=== PATIENT | female | born 1955 | race Caucasian/White ===

== ENCOUNTER → 2021-05-25 11:02 | Outpatient (BNVA) | payer MEDICARE, SELFPAY | PROVIDERS: PCP Internal Medicine; Visit Provider Obstetrics & Gynecology ==

== ENCOUNTER 2021-08-29 08:22 | Outpatient (REF) | payer MEDICARE, SELFPAY ==
[2021-08-29 11:42] LABS: MANUAL DIFF FLAG NO
[2021-08-29 12:00] LABS: Basophils Percent Auto 0.6 % (0-2); Eosinophils Absolute Auto 0.1 X10*3/uL (0.0-0.4); Eosinophils Percent Auto 2.5 % (0-4); Hematocrit 41.6 % (37.0-47.0); Hemoglobin 13.6 g/dl (12.0-16.0); Imm Gran Abs Auto 0.01 X10*3/uL (0.00-0.03); Imm Gran Pct Auto 0.2 % (0.0-0.4); Lymphocytes Absolute Auto 2.1 X10*3/uL (1.2-4.9); Lymphocytes Percent Auto 43.9 % (20-40); Mean Corpuscular HGB Conc 32.7 g/dl (31.0-35.0); Mean Corpuscular Volume 91.8 fL (80.0-98.0); Mean Platelet Volume 11.8 fL (9.4-12.3); Monocytes Absolute Auto 0.3 X10*3/uL (0.1-1.2); Monocytes Percent Auto 7.2 % (2-11); Neutrophils Absolute Auto 2.2 x10*3/uL (2.0-8.3); Neutrophils Percent Auto 45.6 % (45-73); Platelet Count 197 X10*3/uL (160-400); Red Blood Count 4.53 X10*6/uL (4.20-5.50); Red Cell Distribution Width 12.8 % (11.0-16.0); White Blood Count 4.7 X10*3/uL (4.8-10.8)
[2021-08-29 12:35] LABS: Vitamin D 25-OH Total 52.4 ng/mL (>30)
[2021-08-29 12:50] LABS: Alanine Aminotransferase 17 U/L (0-31); Albumin Level 4.1 g/dL (3.5-5.0); Alkaline Phosphatase 64 U/L (39-117); Anion Gap 13 (12-20); Aspartate Amino Transferase 15 U/L (5-31); Bilirubin Total 0.5 mg/dL (0.0-1.0); Blood Urea Nitrogen 22 mg/dL (9-16); Calcium 9.5 mg/dL (8.4-10.2); Carbon Dioxide 22 mmol/L (22-29); Chloride 109 mmol/L (96-108); Cholesterol 190 mg/dL; Estimated Glomerular Filt Rate > 60; Glucose Fasting 96 mg/dL (60-99); HDL Cholesterol 48 mg/dL; LDL Cholesterol Calculated 120 mg/dl; Potassium 4.3 mmol/L (3.3-5.1); Sodium 140 mmol/L (135-145); Total Protein 6.8 g/dL (6.5-8.0); Triglycerides 111 mg/dL
== END 2021-08-29 08:23 | disposition home or self-care (01) ==
LOC: HO.HMGCLDS 08:22
PROVIDERS: PCP Internal Medicine; Visit Provider Internal Medicine
DX: I10 Essential (primary) hypertension (principal); E78.00 Pure hypercholesterolemia, unspecified; K21.9 Gastro-esophageal reflux disease without esophagitis; M81.0 Age-related osteoporosis without current pathological fracture
CPT/HCPCS: 36415; 80053; 80061; 82306; 85025

== ENCOUNTER 2022-06-26 09:17 | Outpatient (REF) | payer MEDICARE, SELFPAY ==
[2022-06-29 22:41] LABS: HPV mRNA E6/E7 rflx Not Detected (Not Detected)
== END 2022-06-26 09:18 | disposition home or self-care (01) ==
LOC: HO.LNP 09:17
PROVIDERS: Visit Provider Obstetrics & Gynecology
DX: Z01.419 Encounter for gynecological examination (general) (routine) without abnormal findings (principal)
CPT/HCPCS: 87624; 88142

== ENCOUNTER 2022-07-06 10:16 | Outpatient (REF) | payer MEDICARE, SELFPAY ==
--- NOTE | ~2022-07-06 | MM_ITS ---
EXAMINATION: BONE DENSITOMETRY CLINICAL INDICATION: Asymptomatic menopausal state. COMPARISON: Previous BD dated 06/18/2020 and baseline BD dated 10/16/2011. TECHNIQUE: Using a [employer] DXA System (software version: 13.1) manufactured by [employer], dual-energy x-ray absorptiometry was performed of the lumbar spine and left hip. The images are of good technical quality. Summary results are attached. FINDINGS: AP SPINE L1-L4: Current: BMD 1.267 g/cm2, Z-score 2.2, T-score 0.7, normal, 4.4% decrease from previous, 2.7% increase from baseline (<5% change is not significant). Prior: BMD 1.326 g/cm2. Baseline: BMD 1.234 g/cm2. LEFT FEMUR, NECK: Current: BMD 0.790 g/cm2, Z-score -0.3, T-score -1.8, osteopenia. Prior: BMD 0.785 g/cm2. Baseline: BMD 0.893 g/cm2. LEFT FEMUR, TOTAL: Current: BMD 0.875 g/cm2, Z-score 0.1, T-score -1.1, osteopenia, 1.4% decrease from previous, 9.6% decrease from baseline (<5% change is not significant). Prior: BMD 0.887 g/cm2. Baseline: BMD 0.968 g/cm2. IDENTIFIED RISK FACTORS: Menopause. HISTORY OF FRACTURE: None listed. MEDICATIONS: Calcium supplements or multivitamin, vitamin D. MM/XR DEXA axial skeleton IMPRESSION: 1. DIAGNOSIS: Osteopenia based on the lowest T-score value of -1.8 in the femoral neck applying World Health Organization criteria. 2. 10-YEAR FRACTURE RISK PREDICTION, FRAX: Major osteoporotic fracture (clinical spine, forearm, hip or shoulder) 10.4%. Hip fracture 1.5%. 3. Treatment Recommendations: NOF guidelines recommend consideration for treatment in postmenopausal women and men age 50 and older presenting with the following: -A hip or vertebral (clinical or morphometric) fracture. -T-score less than or equal to -2.5 at the femoral neck or spine after appropriate evaluation to exclude secondary causes. -Low bone mass at the hip or spine and a 10-year fracture probability by FRAX of greater than or equal to 3% for hip fracture or greater than or equal to 20% for major osteoporotic fracture based on the [place] adapted WHO algorithm. 4. Other Recommendations: All treatment decisions require clinical judgment and consideration of individual patient factors, including patient preferences, comorbidities, previous drug use, risk factors not captured in the FRAX model (e.g. frailty, falls, vitamin D deficiency, increased bone turnover, interval significant decline in bone density) and possible under or overestimation of fracture risk by FRAX. Additional medical evaluation for secondary cause of low bone mineral density may be appropriate. FUTURE SCAN RECOMMENDATION: People with diagnosed cases of osteoporosis or at high risk for fracture should have regular bone mineral density tests. For patients eligible for Medicare, routine testing is allowed once every 2 years. The testing frequency can be increased to one year for patients who have rapidly progressing disease, those who are receiving or discontinuing medical therapy to restore bone mass, or have additional risk factors.
== END 2022-07-06 10:17 | disposition home or self-care (01) ==
LOC: HO.MAMMO 10:16
PROVIDERS: PCP Internal Medicine; Visit Provider Obstetrics & Gynecology
DX: Z13.820 Encounter for screening for osteoporosis (principal); Z78.0 Asymptomatic menopausal state
CPT/HCPCS: 77080

== ENCOUNTER → 2022-07-27 12:37 | Outpatient (BNVA) | payer MEDICARE, SELFPAY | PROVIDERS: PCP Internal Medicine; Visit Provider Obstetrics & Gynecology | DX: M85.80 Other specified disorders of bone density and structure, unspecified site (principal) | CPT/HCPCS: 99212 ==

== ENCOUNTER 2023-07-10 08:11 | Outpatient (AMB) | payer MEDICARE, SELFPAY ==
--- NOTE | 2023-07-10 08:15 | MHC.OFFVIS ---
Intake Vital Signs 07/10/23 08:17 Height 5 ft 6 in Weight 160 lb BMI 25.8 BP 140/80 H Intake Visit Reasons: Annual Intake Note: no concerns Line Maintenance Supervisor Required: No Information Interpreted: non-clinical & clinical Warehouse Shipping Supervisor: Warehouse Shipping Supervisor Present (Son jessenia MONTE) Accompanied by: Self / Same As Patient Allergies adhesive [ADHESIVE] Allergy (Unknown, Unverified 07/10/23 08:18) RASH amoxicillin Allergy (Unknown, Verified 07/10/23 08:18) rash penicillin V Allergy (Unknown, Verified 07/10/23 08:18) Rash Penicillins [PENICILLINS] Allergy (Unknown, Unverified 07/10/23 08:18) RASH adhesive tape Allergy (Unknown, Uncoded 07/10/23 08:18) Rash Post menopausal: Yes HPI HPI Comments History of Present Illness Details Presenting for annual exam with no complaints.? Last Pap smear was negative in 2021, in 2019 Pap smear was negative/ HPV negative , this was preceded by ASCUS HPV positive, colpo/ biopsy showed no tissues, preceded by GILLIAN 1 in 2017. Last mammogram was few days ago in [place], report not available, last colonoscopy was 4 years ago the patient will be due for another screening colonoscopy in 3 years according to her, last DEXA scan was 2 years ago [facility] Medical History Dysplasia of cervix, low grade (GILLIAN 1) Colonoscopy planned Cataract History of high cholesterol Accelerated essential hypertension Surgical History Hx of section Tubal ligation status Family History Father HTN (hypertension) Aneurysm CAD (coronary artery disease) Mother HTN (hypertension) Social History Household Members: Significant Other Housing: House Alcohol intake: current Alcohol intake frequency: holidays/special occasions only Patient Tobacco Use Status: Never used Tobacco service: No Current occupational status: retired Sexual orientation: Straight/Heterosexual Gender identity: Female Female Reproductive History Menstrual Age of Menarche: 13 Menopause type: natural Total pregnancies: 2 Full term: 2 Number of Living Children: 2 Date of last pap smear: 06/26/22 (neg pap and hpv) History of abnormal pap smear: Yes (02/15 ascus +hpv 03/18 colpo GILLIAN 1 03/19 ascus) Date of Mammogram: 07/06/23 Date of last Bone Density Screenin07/06/22 Review of Systems Const All systems reviewed & are unremarkable except as noted in HPI and below Card Reports as per HPI Resp Reports as per HPI GI Reports as per HPI and Reports no additional complaints Reports as per HPI Physical Exam Vital Signs: Last Vital Signs BP 140/80 H 07/10/23 08:17 BMI result Body Mass Index 25.8 Const General: cooperative, healthy appearing and comfortable Chest Chest palpation & inspection: normal inspection of the chest and normal palpation of entire chest wall Breast/axilla inspection: normal inspection of the breasts and normal inspection of the axillae Breast/axilla palpation: normal palpation of the breasts, normal palpation of the axillae and no axillary lymphadenopathy Resp Effort & Inspection: normal respiratory effort Auscultation: clear to auscultation bilaterally Percussion: percussion normal Cardio Palpation: normal PMI Rate: regular rate Rhythm: regular rhythm Heart sounds: no murmurs and no rubs Peripheral pulses: Peripheral pulses 2+ throughout GI Inspection: Yes normal to inspection Palpation (GI): Soft to palpation, nontender, no guarding, not rigid and No hepatosplenomegaly present Percussion: Yes normal to percussion Auscultation: normal bowel sounds Rectal Exam - Female: deferred General: Yes bladder normal to palpation External Female Exam: No lesion Speculum Exam - Vagina: normal appearance of the vagina, normal palpation, normal vaginal discharge and not erythematous Speculum Exam - Cervix: normal appearance of the cervix and normal palpation Bimanual exam- vagina & uterus: normal bimanual exam, normal palpation, uterine size normal, bladder normal to palpation, consistency normal and normal palpation Bimanual Exam- Adnexa, other: normal adnexae, no masses and no tenderness Assessment & Plan Assessment & Plan (1) Well woman exam: Comment: GILLIAN 1 in 2018, ASCUS HPV positive in 2019, negative co testing in 2019 and in 2021 Code(s): Z01.419 - Encounter for gynecological examination (general) (routine) without abnormal findings Plan: Co testing done Counseled the patient about the recommended dietary allowance of 1200 mg of Calcium & 800 IU of vitamin D. Instructions given the patient to schedule next screen Mammogram in a year. The patient was instructed to perform monthly self-breast exams and to schedule an annual exam in a year; All questions answered and the patient verbalized understanding. Coding Level of Care Code Est Pt Prev Care >65y(84520) Diagnoses Well woman exam Z01.419
[2023-07-10 08:17] VITALS: BP 140/80; BMI 25.8
== END 2023-07-10 08:41 | disposition home or self-care (01) ==
PROVIDERS: PCP Internal Medicine; Visit Provider Obstetrics & Gynecology
DX: Z01.419 Encounter for gynecological examination (general) (routine) without abnormal findings (principal); Z91.89 Other specified personal risk factors, not elsewhere classified
CPT/HCPCS: G0101; Q0091

== ENCOUNTER 2023-07-10 08:11 | Outpatient (REF) | payer MEDICARE, SELFPAY ==
[2023-07-12 01:38] LABS: HPV mRNA E6/E7 rflx Not Detected (Not Detected)
== END 2023-07-10 08:12 | disposition home or self-care (01) ==
LOC: HO.LNP 08:11
PROVIDERS: Visit Provider Obstetrics & Gynecology
DX: Z01.419 Encounter for gynecological examination (general) (routine) without abnormal findings (principal); Z11.51 Encounter for screening for human papillomavirus (HPV)
CPT/HCPCS: 87624; 88142; G0101

== ENCOUNTER 2023-09-06 09:03 | Outpatient (REF) | payer MEDICARE, SELFPAY ==
[2023-09-06 11:20] LABS: MANUAL DIFF FLAG NO
[2023-09-06 11:38] LABS: Basophils Absolute Auto 0.1 X10*3/uL (0.0-0.2); Basophils Percent Auto 1.2 % (0-2); Eosinophils Absolute Auto 0.1 X10*3/uL (0.0-0.4); Eosinophils Percent Auto 2.7 % (0-4); Hematocrit 39.5 % (37.0-47.0); Hemoglobin 13.2 g/dl (12.0-16.0); Imm Gran Abs Auto 0.01 X10*3/uL (0.00-0.03); Imm Gran Pct Auto 0.2 % (0.0-0.4); Lymphocytes Absolute Auto 1.4 X10*3/uL (1.2-4.9); Mean Corpuscular HGB Conc 33.4 g/dl (31.0-35.0); Mean Corpuscular Hemoglobin 31.2 pg (27.0-33.0); Mean Corpuscular Volume 93.4 fL (80.0-98.0); Mean Platelet Volume 11.8 fL (9.4-12.3); Monocytes Absolute Auto 0.3 X10*3/uL (0.1-1.2); Monocytes Percent Auto 7.1 % (2-11); Neutrophils Absolute Auto 2.2 x10*3/uL (2.0-8.3); Neutrophils Percent Auto 53.8 % (45-73); Platelet Count 201 X10*3/uL (160-400); Red Blood Count 4.23 X10*6/uL (4.20-5.50); White Blood Count 4.1 X10*3/uL (4.8-10.8)
[2023-09-06 11:53] LABS: Alanine Aminotransferase 16 U/L (0-31); Alkaline Phosphatase 54 U/L (39-117); Anion Gap 12 (12-20); Aspartate Amino Transferase 14 U/L (5-31); Bilirubin Total 0.6 mg/dL (0.0-1.0); Blood Urea Nitrogen 20 mg/dL (9-16); Calcium 9.1 mg/dL (8.4-10.2); Carbon Dioxide 25 mmol/L (22-29); Chloride 112 mmol/L (96-108); Cholesterol 166 mg/dL (<200); Estimated Glomerular Filt Rate > 60; Glucose Fasting 101 mg/dL (60-99); HDL Cholesterol 55 mg/dL (>40); LDL Cholesterol Calculated 92 mg/dL (<100); Potassium 4.5 mmol/L (3.3-5.1); Sodium 144 mmol/L (135-145); Total Protein 6.8 g/dL (6.5-8.0); Triglycerides 98 mg/dL (<150)
== END 2023-09-06 09:04 | disposition home or self-care (01) ==
LOC: HO.HMGCLDS 09:03
PROVIDERS: PCP Internal Medicine; Visit Provider Internal Medicine
DX: I10 Essential (primary) hypertension (principal); E78.00 Pure hypercholesterolemia, unspecified
CPT/HCPCS: 36415; 80053; 80061; 85025

== ENCOUNTER → 2024-09-03 08:30 | Outpatient (BNVA) | payer MEDICARE, SELFPAY | PROVIDERS: PCP Internal Medicine; Visit Provider Obstetrics & Gynecology | DX: Z01.419 Encounter for gynecological examination (general) (routine) without abnormal findings (principal) | CPT/HCPCS: G0101 ==

== ENCOUNTER 2024-09-03 08:48 | Outpatient (AMB) | payer MEDICARE, SELFPAY ==
[2024-09-03 08:50] VITALS: BP 110/76; BMI 27.1
--- NOTE | 2024-09-03 08:50 | MHC.OFFVIS ---
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 No complaints. Last Pap/HPV was negative in 07/23 Last Mammogram was done recent in [place], reports not available according to patient was negative Last Colonoscopy was done in 2019, the recommendation was to repeat in 7 years Last DEXA scan was done in 07/22 [facility] Medical History Dysplasia of cervix, low grade (FREDY 1) Colonoscopy planned Cataract History of high cholesterol Accelerated essential hypertension Surgical History Hx of section Tubal ligation status Family History Father HTN (hypertension) Aneurysm CAD (coronary artery disease) Mother HTN (hypertension) Social History Household Members: Significant Other Housing: House Alcohol intake: current Alcohol intake frequency: holidays/special occasions only Patient Tobacco Use Status: Never used Tobacco service: No Current occupational status: retired Sexual orientation: Straight/Heterosexual Gender identity: Female Female Reproductive History Menstrual Age of Menarche: 13 Menopause type: natural Total pregnancies: 2 Full term: 2 Number of Living Children: 2 Date of last pap smear: 07/10/23 (neg pap and hpv) History of abnormal pap smear: Yes (5/18 ascus +hpv /18 colpo fredy 1 03/19 ascus) Date of Mammogram: 07/01/24 Date of last Bone Density Screenin07/06/22 Review of Systems Const All systems reviewed & are unremarkable except as noted in HPI and below Card Reports as per HPI Resp Reports as per HPI GI Reports as per HPI and Reports no additional complaints Reports as per HPI Physical Exam Vital Signs: Last Vital Signs BP 110/76 09/03/24 08:50 BMI result Body Mass Index 27.1 Const General: cooperative, healthy appearing and comfortable Chest Chest palpation & inspection: normal inspection of the chest and normal palpation of entire chest wall Breast/axilla inspection: normal inspection of the breasts and normal inspection of the axillae Breast/axilla palpation: normal palpation of the breasts, normal palpation of the axillae and no axillary lymphadenopathy Resp Effort & Inspection: normal respiratory effort Auscultation: clear to auscultation bilaterally Percussion: percussion normal Cardio Palpation: normal PMI Rate: regular rate Rhythm: regular rhythm Heart sounds: no murmurs and no rubs Peripheral pulses: Peripheral pulses 2+ throughout GI Inspection: Yes normal to inspection Palpation (GI): Soft to palpation, nontender, no guarding, not rigid and No hepatosplenomegaly present Percussion: Yes normal to percussion Auscultation: normal bowel sounds Rectal Exam - Female: deferred General: Yes bladder normal to palpation External Female Exam: No lesion Speculum Exam - Vagina: normal appearance of the vagina, normal palpation, normal vaginal discharge and not erythematous Speculum Exam - Cervix: normal appearance of the cervix and normal palpation Bimanual exam- vagina & uterus: normal bimanual exam, normal palpation, uterine size normal, bladder normal to palpation, consistency normal and normal palpation Bimanual Exam- Adnexa, other: normal adnexae, no masses and no tenderness Assessment & Plan Assessment & Plan (1) Well woman exam: Comment: FREDY 1 in 2018, ASCUS HPV positive in 2019, negative co testing in 2019 , 2021 in 2022 Code(s): Z01.419 - Encounter for gynecological examination (general) (routine) without abnormal findings Category: Medical Plan: Co testing not indicated this year Counseled the patient about the recommended dietary allowance of 1200 mg of Calcium & 800 IU of vitamin D. Instructions given the patient to schedule next screening Mammogram . Will order DEXA scan . The patient was instructed to perform monthly self-breast exams and to schedule a 2 week DEXA scan follow-up appointment and an annual exam in a year; All questions answered and the patient verbalized understanding. Orders: Orders XR DEXA axial skeleton Today Z78.0 - Asymptomatic menopausal state Coding Level of Care Code Est Pt Prev Care >65y(25459) Diagnoses Well woman exam Z01.419
--- OUTSIDE RECORDS SUMMARY | 2024-09-09 16:26 | XMS_ITS | Patient Health Record ---
Author Organization [facility] Address [address] [place] [id number] Care Team Providers Care Highway Administrative Engineer Name Role Phone Home Bond MD Primary Care Provider Paulino Purvis [phone] ALLERGIES Allergen (clinical drug ingredient) Drug/Non Drug Allergy documented on EMR Reaction Allergy Type Onset Date Status amoxicillin Amoxicillin Unknown Drug Allergy Act niraj REASON FOR REFERRAL No Information MEDICATIONS Medication SIG (Take, Route, Fr equency, Duration) Notes Start Date End Date Status Multivitamin Active atenolol Active Lisinopril Active Calcium Active Atorvastatin Calcium Active SOCIAL HISTORY Tobacco Use: Social History Observation Description Date Details (start date - stop date) Never Smoker NA - NA Sex Assigned At : Social History Observation Description Sex Assigned At Unknown Tobacco Use/Smoking Question Answer Notes Patient is a nonsmoker Alcohol Screen Question Answer Notes Did you have a drink contain ing alcohol in the past year? Yes How often did you have a dri nk containing alcohol in the past year? Monthly or less (1 point) How many drinks did you have on a typical day when you were drinking in the past year? 1 or 2 drinks (0 point) How often did you have 6 or more drinks on one occasion in the past year? Never (0 point) Points 1 Interpretation Negative PROBLEMS Problem Type ICD Code Onset Dates Problem Status W/U Status Risk SNOMED Code Notes Problem Encounter for screening for malignant neoplasm of colon (Z12.11) Active confirmed 617270439 Problem Preprocedural examination (Z01.818) Active confirmed [id number] PLAN OF TREATMENT Pending Test Test Name Order Date GI BIOPSY 08/13/2017 Future Test Test Name Order Date COLONOSCOPY 04/24/2017 Next Appt Details Provider Name:Paulino Uriostegui , 12/31/2024 03:20:00 PM, [address], [address], [place], [address], Insurance Providers Payer Name Payer Address Payer Phone Subscriber Number Group Number Insured Name Patient Relationship to Insured Coverage Start Date Coverage End Date MEDICARE OF [place] [address] [place] [address] [phone] [id number] NESTOR CORRAL Self - patient is the insured MEDEX ATTN CLAIMS [address] [place] [address] [phone] [id number] NESTOR CORRAL Self - patient is the insured MEDICAL (GENERAL) HISTORY Medical History History ICD Code Denies [place],DM,CVA,Lung disease,renal dise ase Hypertension Hypercholesterolemia Neg screening colonoscopy in 2006 Surgical History Surgery Date(Month/Year) Endometrial ablation x 4 1979's 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
== END 2024-09-03 09:28 | disposition home or self-care (01) ==
PROVIDERS: PCP Internal Medicine; Visit Provider Obstetrics & Gynecology
DX: Z01.419 Encounter for gynecological examination (general) (routine) without abnormal findings (principal)
CPT/HCPCS: G0101

== ENCOUNTER 2024-09-16 08:25 | Outpatient (REF) | payer MEDICARE, SELFPAY ==
--- OUTSIDE RECORDS SUMMARY | 2024-09-16 08:31 | XMS_ITS | Patient Health Record ---
Author Organization [facility] Address [address] [place] [address] Care Team Providers Care Medical Support Assistant Name Role Phone Home Bond MD Primary Care Provider Paulino Purvis [phone] ALLERGIES Allergen (clinical drug ingredient) Drug/Non Drug [...] malignant neoplasm of colon (Z12.11) Active confirmed 044922860 Problem Preprocedural examination (Z01.818) Active confirmed [id number] PLAN OF TREATMENT Pending Test Test Name Order Date GI BIOPSY 08/13/2017 Future Test Test Name Order Date COLONOSCOPY 04/24/2017 Next Appt Details Provider Name:Paulino Uriostegui , 12/31/2024 03:20:00 PM, [address], [address], [place], [address], Insurance Providers Payer Name Payer Address Payer Phone Subscriber Number Group Number Insured Name Patient Relationship to Insured Coverage Start Date Coverage End Date MEDICARE OF [place] [address] [place] [address] [phone] [id number] NESTOR CORRAL Self - patient is the insured MEDEX ATTN CLAIMS [address] [place] [phone] [id number] NESTOR CORRAL Self - patient is the insured MEDICAL (GENERAL) HISTORY Medical History History ICD Code Denies [place],DM,CVA,Lung disease,renal dise ase Hypertension Hypercholesterolemia Neg screening colonoscopy in 2006 Surgical History Surgery Date(Month/Year) Endometrial ablation x 4 1979's 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
[2024-09-16 09:59] LABS: MANUAL DIFF FLAG NO
[2024-09-16 10:08] LABS: Basophils Absolute Auto 0.1 X10*3/uL (0.0-0.2); Basophils Percent Auto 1.1 % (0-2); Eosinophils Absolute Auto 0.2 X10*3/uL (0.0-0.4); Eosinophils Percent Auto 3.4 % (0-4); Hematocrit 38.6 % (37.0-47.0); Hemoglobin 13.1 g/dl (12.0-16.0); Imm Gran Abs Auto 0.01 X10*3/uL (0.00-0.03); Imm Gran Pct Auto 0.2 % (0.0-0.4); Lymphocytes Absolute Auto 1.7 X10*3/uL (1.2-4.9); Lymphocytes Percent Auto 36.9 % (20-40); Mean Corpuscular HGB Conc 33.9 g/dl (31.0-35.0); Mean Corpuscular Hemoglobin 31.2 pg (27.0-33.0); Mean Corpuscular Volume 91.9 fL (80.0-98.0); Mean Platelet Volume 11.7 fL (9.4-12.3); Monocytes Absolute Auto 0.4 X10*3/uL (0.1-1.2); Monocytes Percent Auto 8.5 % (2-11); Neutrophils Absolute Auto 2.4 x10*3/uL (2.0-8.3); Neutrophils Percent Auto 49.9 % (45-73); Platelet Count 188 X10*3/uL (160-400); White Blood Count 4.7 X10*3/uL (4.8-10.8)
[2024-09-16 10:44] LABS: Alanine Aminotransferase 25 U/L (0-31); Alkaline Phosphatase 59 U/L (39-117); Anion Gap 8 (12-20); Aspartate Amino Transferase 19 U/L (5-31); Bilirubin Total 0.7 mg/dL (0.0-1.0); Blood Urea Nitrogen 16 mg/dL (9-16); Calcium 9.1 mg/dL (8.4-10.2); Carbon Dioxide 27 mmol/L (22-29); Chloride 109 mmol/L (96-108); Cholesterol 172 mg/dL (<200); Estimated Glomerular Filt Rate > 60; Glucose Fasting 99 mg/dL (60-99); HDL Cholesterol 55 mg/dL (>40); LDL Cholesterol Calculated 93 mg/dL (<100); Potassium 4.2 mmol/L (3.3-5.1); Sodium 140 mmol/L (135-145); Total Protein 6.9 g/dL (6.5-8.0); Triglycerides 124 mg/dL (<150); Vitamin D 25-OH Total 62.4 ng/mL (>30)
== END 2024-09-16 08:26 | disposition home or self-care (01) ==
LOC: HO.HMGCLDS 08:25
PROVIDERS: PCP Internal Medicine; Visit Provider Internal Medicine
DX: I10 Essential (primary) hypertension (principal); E78.00 Pure hypercholesterolemia, unspecified
CPT/HCPCS: 36415; 80053; 80061; 82306; 85025

== ENCOUNTER 2024-10-15 09:01 | Outpatient (REF) | payer MEDICARE, SELFPAY ==
--- NOTE | ~2024-10-15 | MM_ITS ---
EXAMINATION: Dual-Energy X-ray Absorptiometry - Bone Density Study HISTORY: Estrogen deficiency TECHNIQUE: Notable Limited Dual energy absorptiometry (DEXA) of the lumbar spine, total left hip, and femoral neck was performed. COMPARISON: Comparison is made with the prior examination dated 07/06/2022. FINDINGS: The bone mineral density of the lumbar spine is 1.164 with a T-score of -0.1, and a Z-score of 1.2. This represents a BMD change of -8.1% compared to the prior exam. This is statistically significant. The bone mineral density of the left total hip is 0.886 with a T-score of -1.0, and a Z-score of 0.2. This represents BMD change of 1.3% compared to the prior exam. This is not statistically significant. The bone mineral density of the left femoral neck is 0.777 with a T-score of -1.9, and a Z-score of -0.4. This represents BMD change of -1.6% compared to the prior exam. FRACTURE RISK: The FRAX index suggests a ten year probability of major osteoporotic fracture of 11.2%, and of hip fracture 2.0%. MM/XR DEXA axial skeleton IMPRESSION: Based on bone mineral density, and according to World Health Organization (WHO) criteria, the diagnosis is consistent with osteopenia. All bone density values are in grams per centimeter squared. At this facility, the least significant change in BMD with 95% confidence is 0.022 at the lumbar spine, 0.027 at the hip, and 0.023 at the distal 1/3 radius. Electronically signed by: Paulino Muir MD 10/15/2024 01:17 PM [facility]
== END 2024-10-15 09:02 | disposition home or self-care (01) ==
LOC: HO.MAMMO 09:01
PROVIDERS: PCP Internal Medicine; Visit Provider Obstetrics & Gynecology
DX: Z13.820 Encounter for screening for osteoporosis (principal); Z78.0 Asymptomatic menopausal state
CPT/HCPCS: 77080

== ENCOUNTER → 2024-10-15 09:15 | Outpatient (BNV) | payer MEDICARE, SELFPAY | PROVIDERS: PCP Internal Medicine; Visit Provider Radiology Diagnostic Radiology | DX: E28.39 Other primary ovarian failure (principal) | CPT/HCPCS: 77085 ==

== ENCOUNTER → 2024-11-05 07:59 | Outpatient (BNVA) | payer MEDICARE, SELFPAY | PROVIDERS: PCP Internal Medicine; Visit Provider Obstetrics & Gynecology | DX: M85.80 Other specified disorders of bone density and structure, unspecified site (principal) | CPT/HCPCS: 99212 ==

== ENCOUNTER 2025-03-30 10:22 | Day surgery (SDC) | payer MEDICARE, SELFPAY ==
--- OUTSIDE RECORDS SUMMARY | 2024-12-31 11:20 | XMS_ITS ---
Author Organization [facility] Address [address] [place] [id number] Care Team Providers Care Paid Search Analyst Name Role Phone RACHELLE, KARTIK Primary Care Provider Paulino Arciniega Unavailable [phone] Allergies Allergen (clinical drug ingredient) Drug/Non Drug Allergy documented on EMR Reaction Allergy Type Onset Date Status amoxicillin Amoxicillin Unknown Drug Allergy Act niraj REASON FOR VISIT Patient presents today for a screening colonoscopy Medications Medication SIG (Take, Route, Frequency, Duration) Notes Start Date End Date Status Atenolol 25 MG Oral for 90 Days Active Losartan Potassium 50 MG TAKE 1 TABLET B Y MOUTH EVERY DAY Oral for 90 Days Active Multivitamin Active Calcium Active Atorvastatin Calcium 10 MG TAKE 1 TABLET BY MOUTH EVERY DAY Oral for 90 Days Active Social History Tobacco Use: Social History Observation Description Date Details (start date - stop date) Never Smoker NA - NA Tobacco Use/Smoking Question Answer Notes Patient is [...] Never (0 point) Points 1 Interpretation Negative Section Notes: Nonsmoker; no sig alcohol Problems Problem Type SNOMED Code ICD Code Onset Dates Problem Status W/U Status Risk Notes Problem Personal history of colonic polyps (Z86.010) Active confirmed Vital Signs Temperature 99.1 degrees Fahrenheit 01/01/20 25 Blood pressure systolic 001 mm Hg 01/01/20 25 Blood pressure diastolic 01 mm Hg 025 Height 66 in 12/31/2024 Weight 165 lbs 12/31/2024 BMI 26.63 kg/m2 12/31/2024 Procedures Procedure Date Ordered Date Performed Result Body Sit e COLONOSCOPY 12/31/2024 N/A Encounters Encounter Location Date Provider Diagnosis [facility] [address] [place] [address] 12/31/2024 Paulino Uriostegui Encounter for screen ing for malignant neoplasm of colon Z12.11 ; Preprocedural examination Z01.818 and Personal history of colonic polyps Z86.010 Assessments Encounter Date Diagnosis (ICD Code) Assessment Notes Treatment Notes Treatment Clinical Notes Section Notes 12/31/2024 Encounter for screening for malignant neoplasm of colon (ICD-10 - Z12.11) 12/31/2024 Preprocedural examination (ICD-10 - Z01.818) 12/31/2024 Personal history of colonic polyps (ICD-10 - Z86.010) Plan Of Treatment Pending Test Test Name Order Date COLONOSCOPY 12/31/2024 Next Appt Details Provider Name:Paulino Uriostegui , 03/30/2025 11:40:00 AM, [address] [place] [address], [phone], Progress Notes * NESTOR VILLANUEVA ADOB:[birth year] (69 yo F)Acc No.[id number]:12/31/2024 Progress Notes Patient: NESTOR EVANS Provider: Loretta Uriostegui MD :1955 A ge:69 Y S ex:Female Date:12/31/2024 Address:[address] [place], [place] [id number] Pcp:BRAD BUSH Subjective: * Chief Complaints: * 1 . Patient presents today for a screening colonoscopy. * Medical History: D enies [place],DM,CVA,Lung disease,renal disease, Hypertension, Hypercholesterolemia, Neg screening colonoscopy in 2006, Colonoscopy in 08/2017 with a small tubular adenoma removed. 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 * Family History: F ather: , diagnosed with Heart disease, HTN (hypertension). M other: alive. S iblings: brother, diagnosed with HTN (hypertension). No known hx of colon cancer. No family history of liver cancer. * Social History: T obacco Use: T obacco Use/Smoking P atient is a n onsmoker. D rugs/Alcohol: A lcohol Screen D id you have a drink containing alcohol in the past year? Y es, H ow often did you have a drink containing alcohol in the past year? M onthly or less (1 point), How many drinks did you have on a typical day when you were drinking in the past year? 1 or 2 drinks (0 point), H ow often did you have 6 or more drinks on one occasion in the past year??Never (0 point), P oints 1 , I nterpretation N egative. M iscellaneous: M arital status: . Occupation: retired. N onsmoker; no sig alcohol. * Medications: T aking Calcium , Taking Multivitamin , Taking Atorvastatin Calcium 10 MG Tablet TAKE 1 TABLET BY MOUTH EVERY DAY Oral , Taking Losartan Potassium 50 MG Tablet TAKE 1 TABLET BY MOUTH EVERY DAY Oral , Taking Atenolol 25 MG Tablet Oral , Discontinued Lisinopril , Discontinued atenolol , Discontinued Atorvastatin Calcium , Medication List reviewed and reconciled with the patient * Allergies: A moxicillin. Objective: * Vitals: W t: 165 lbs, Ht: 66 in, BMI: 26.63 Index, BP: 001/01 mm Hg, Temp: 99.1, Wt-k.84. Assessment: * Assessment: 1. E ncounter for screening for malignant neoplasm of colon - Z12.11 (Primary) 2 . P reprocedural examination - Z01.818 3 . P ersonal history of colonic polyps - Z86.010 Plan: * Treatment: 2.?Personal history of colonic polyps?Procedure: COLONOSCOPY* with MACsched for 01/28/25 at 11:40 ammiralax * Procedure Codes: 4 5378 DIAGNOSTIC COLONOSCOPY * Preventive Medicine: Counseling: C are goal follow-up plan: A oz Normal BMI Follow-up D ietary management education, guidance, and counseling, B LA management provided Y es. Urinary Incontinence: U rinary Incontinence A ssessment: A bsent, P demarcus of care documented: N o, reason not specified. Screenings: F all Risk Screening F all Risk Assessment: N o falls in the past year, S creening: N o falls in the past year, A ssessment: N ot performed, no reason specified, P demarcus of Care: N ot documented, no reason specified. * * The named appointment provid er may or may not be the originator of this progress note, and it is not deemed complete until electronically signed by the appointment provider. Sign off status: Pending * Provider: Loretta Uriostegui MD Date: 0 12/31/2024 Generated for Ángel avila/Marty/Kathrineitting on: 0 03/26/2025 01:37 PM EDT
--- NOTE | 2025-03-27 10:58 | HO.ANESPROP2 ---
Documented by User: Regina Ho NP 03/27/25 10:59 HPI - Anesthesia Eval Consult details Narrative: 69yo F for Colonoscopy PMFSH Active Problems Active Problems: All Active Problems Osteopenia (Acute) Menopause (Acute) Well woman exam (Acute) Past Medical History Medical History Dysplasia of cervix, low grade (GILLIAN 1) Colonoscopy planned Cataract History of high cholesterol Accelerated essential hypertension Family History Family History Father HTN (hypertension) Aneurysm CAD (coronary artery disease) Mother HTN (hypertension) Surgical History Surgical History Hx of section Tubal ligation status Social History Social History Household Members: Significant Other Housing: House Are you a primary clinical care leader to a significant other at home: No Do you presently have visiting nurse or other home services: No Alcohol intake: current Alcohol intake frequency: holidays/special occasions only Patient Tobacco Use Status: Never used Tobacco Use of substances other than those prescribed or required for medical reasons: No Have you been hit, kicked, punched, or otherwise hurt by someone within the past year? If so, by whom?: No Are you DNR?: No Advance Directives: No Advance Directives Information Provided: Yes Patient : No : No Poor oral hygiene: No service: No Current occupational status: retired Sexual orientation: Straight/Heterosexual Gender identity: Female Meds Allergies Allergy/AdvReac Type Severity Reaction Status Date / Time adhesive (ADHESIVE) Allergy Intermediate RASH Verified 03/30/25 10:39 amoxicillin Allergy Intermediate rash Verified 03/30/25 10:39 Penicillins (PENICILLINS) Allergy Intermediate RASH Verified 03/30/25 10:39 Home Medications ?Medication ?Instructions ?Recorded ?Confirmed ?Last Taken ?Type atenolol 25 mg tablet 25 mg PO DAILY 05/25/21 03/30/25 03/30/25 History atorvastatin 10 mg tablet 10 mg PO DAILY 05/25/21 03/26/25 Unknown History losartan 50 mg tablet 50 mg PO DAILY 05/25/21 03/26/25 Unknown History calcium carbonate (Calcium 500) 500 mg PO DAILY 06/26/22 Unknown History cholecalciferol (vitamin D3) 25 25 mcg PO DAILY 06/26/22 Unknown History mcg (1,000 unit) capsule Assessment and Plan Assessment Anesthesia Assessment: Chart Reviewed Documented by User: Jorden Morrell MD 03/30/25 12:20 [facility] Past Medical History Medical History Dysplasia of cervix, low grade (GILLIAN 1) Colonoscopy planned Cataract History of high cholesterol Accelerated essential hypertension Functional capacity: independent ambulation Patient : No Family History Family History Father HTN (hypertension) Aneurysm CAD (coronary artery disease) Mother HTN (hypertension) Family history of problems with anesthesia: No Surgical History Surgical History Hx of section Tubal ligation status History of Problems with Anesthesia: No Social History Social History Household Members: Significant Other Housing: House Are you a primary clinical care leader to a significant other at home: No Do you presently have visiting nurse or other home services: No Alcohol intake: current Alcohol intake frequency: holidays/special occasions only Patient Tobacco Use Status: Never used Tobacco Use of substances other than those prescribed or required for medical reasons: No Have you been hit, kicked, punched, or otherwise hurt by someone within the past year? If so, by whom?: No Are you DNR?: No Advance Directives: No Advance Directives Information Provided: Yes Patient : No : No Poor oral hygiene: No service: No Current occupational status: retired Sexual orientation: Straight/Heterosexual Gender identity: Female Meds Allergies Allergy/AdvReac Type Severity Reaction Status Date / Time adhesive (ADHESIVE) Allergy Intermediate RASH Verified 03/30/25 10:39 amoxicillin Allergy Intermediate rash Verified 03/30/25 10:39 Penicillins (PENICILLINS) Allergy Intermediate RASH Verified 03/30/25 10:39 Home Medications ?Medication ?Instructions ?Recorded ?Confirmed ?Last Taken ?Type atenolol 25 mg tablet 25 mg PO DAILY 05/25/21 03/30/25 03/30/25 History atorvastatin 10 mg tablet 10 mg PO DAILY 05/25/21 03/26/25 Unknown History losartan 50 mg tablet 50 mg PO DAILY 05/25/21 03/26/25 Unknown History calcium carbonate (Calcium 500) 500 mg PO DAILY 06/26/22 Unknown History cholecalciferol (vitamin D3) 25 25 mcg PO DAILY 06/26/22 Unknown History mcg (1,000 unit) capsule Exam Exam Date and Time: 03/30/2025 Airway Mallampati Class: II TM Dist: >3cm Neck ROM: Full Heart: rrr Lungs: cta Other: normal Assessment and Plan Final Anesthetic Review Family History of Problems with Anesthesia: No History of Problems with Anesthesia: No NPO: Yes ASA Class: II Final Preanesthetic Review: No Changes in Pt Med Stat, Meds/Allgs Chart Reviewed, Consent Obtained/Reviewed and Anes Risks/Benef Reviewed Patient Risk: Low Procedure Risk: Low Anesthetic Plan Anesthetic Plan: MAC: Disposition: Standard PACU
[2025-03-30 10:40] VITALS: BP 182/82; PULSE 80; RESP 12; TEMP 37.3; O2SAT 96; BMI 26.8
[2025-03-30] MEDS: Lactated Ringers 1,000 ML 100 ML IVCONT (10:45)
[2025-03-30] MEDS: Scopolamine 1.5 MG PATCH.TD.3 TRANSDERMA (12:20)
[2025-03-30 13:15] VITALS: BP 104/64; PULSE 67; RESP 17; TEMP 36.2; O2SAT 99
--- NOTE | 2025-03-30 13:20 | PM.OP ---
Brief Operative Note Date of Service: 03/30/25 Pre-op diagnosis: Screening Post-op diagnosis: other (Cecal polyp) Procedure: Colonoscopy to the cecum and TI with bx/removal of polyp Surgeon: Paulino Uriostegui MD Anesthesia: MAC Was an Mexican Food Maker Hand used for this Procedure?: No Estimated blood loss (mL): 2.0 Pathology: other (A. Cecal polyp) Condition: stable Disposition: PACU
[2025-03-30 13:30] VITALS: BP 117/62; PULSE 59; RESP 17; TEMP 36.2; O2SAT 99
--- NOTE | 2025-03-31 00:49 | OP_ITS ---
DATE OF SERVICE: 03/30/2025 SURGEON: Paulino Uriostegui MD INDICATIONS: The patient presents for followup of personal history of tubular adenoma of the colon and colorectal cancer screening. Full consent was obtained from her for this, including risks of bleeding and perforation. PREOPERATIVE DIAGNOSIS: POSTOPERATIVE DIAGNOSIS: PROCEDURE PERFORMED: ESTIMATED BLOOD LOSS: COMPLICATIONS: ANESTHESIA: Monitored anesthesia care. ASSISTANTS: SPECIMENS: PROCEDURES: Colonoscopy to cecum and terminal ileum with biopsy and removal of polyp. PREOPERATIVE DIAGNOSES: Colorectal cancer screening and personal history of tubular adenoma of the colon. POSTOPERATIVE DIAGNOSES: Colorectal cancer screening and personal history of tubular adenoma of the colon, small colon polyp, diverticulosis, and internal hemorrhoids. DESCRIPTION OF PROCEDURE: The patient was placed in the left lateral decubitus position. The digital rectal exam revealed no abnormalities. The Olympus video pediatric colonoscope was entered into the rectum and advanced easily to the cecum. Once in the cecum, I did identify cecal pouch with appendiceal orifice and a normal-appearing ileocecal valve. The terminal ileum was cannulated and appeared normal. The scope was withdrawn back into the colon. The entire cecum and ileocecal valve were well visualized. In the cecum, there was an approximately 4 mm polyp, which was biopsied and removed with cold biopsy forceps. The remainder of the cecum appeared normal. The scope was slowly withdrawn assessing all mucosal surfaces carefully. Preparation was excellent. I did not visualize any other polyps, colitis, nor angiodysplasia. There was a mild amount of sigmoid diverticulosis. In the rectum, scope was retroflexed visualizing internal hemorrhoids, but no other pathology. The rectal mucosa appeared normal. The scope was straightened and withdrawn from the patient. She tolerated the procedure well and was returned to recovery area in stable condition. IMPRESSION: 1. Small colon polyp. 2. Diverticulosis. 3. Internal hemorrhoids. PLAN: The results of biopsy will be checked. I would recommend a repeat colonoscopy in 5 years for surveillance. She will otherwise see me on a p.r.n. basis. Paulino Uriostegui MD RMW/FAITH / [phone]
== END 2025-03-30 14:03 | disposition home or self-care (01) ==
PROVIDERS: Visit Provider Internal Medicine
PROC: 0DJD8ZZ Inspection of Lower Intestinal Tract, Via Natural or Artificial Opening Endoscopic (ICD-10-PCS; CPT 45378; principal; 2025-03-30 11:40)
DX: Z12.11 Encounter for screening for malignant neoplasm of colon (principal); D12.0 Benign neoplasm of cecum; K57.30 Diverticulosis of large intestine without perforation or abscess without bleeding; K64.8 Other hemorrhoids; Z86.0101 Personal history of adenomatous and serrated colon polyps; I10 Essential (primary) hypertension; E78.00 Pure hypercholesterolemia, unspecified; Z79.02 Long term (current) use of antithrombotics/antiplatelets; Z79.899 Other long term (current) drug therapy
CPT/HCPCS: 45380; 88305; J2003; J2405; J2704; J3010

== ENCOUNTER 2025-05-11 10:35 | Outpatient (AMB) | payer MEDICARE, SELFPAY ==
--- NOTE | 2025-05-11 10:48 | MHC.OFFVIS ---
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 Allergies adhesive (ADHESIVE) Allergy (Intermediate, Verified 03/30/25 10:39) RASH amoxicillin Allergy (Intermediate, Verified 03/30/25 10:39) rash Penicillins (PENICILLINS) Allergy (Intermediate, Verified 03/30/25 10:39) RASH Medication List - Last Reconciled 05/11/25 by Nate Hunt MD atenolol 25 mg PO DAILY atorvastatin 10 mg PO DAILY calcium carbonate (Calcium 500) 1,250 mg PO DAILY losartan 50 mg PO DAILY multivitamin 1 tab PO DAILY HPI Comments Details: The patient is a 69-year-old female presenting for evaluation of coronary artery calcification and management of cardiovascular risk factors. The patient underwent a cardiac CT scan which revealed coronary artery calcification with a calcium score of 99, placing her in a higher percentile for her age and sex. She has a family history of cardiovascular disease, including a brother who of a massive heart attack at age 65, and a history of hypertension in her family. The patient is currently on atenolol, losartan, and atorvastatin for management of hypertension and hyperlipidemia. She has no history of diabetes, smoking, or previous cardiac events such as myocardial infarction or angina. [facility] Medical History (Updated 05/11/25 @ 11:28 by Nate Hunt MD) Primary hypertension Atherosclerotic cardiovascular disease Dysplasia of cervix, low grade (GILLIAN 1) Colonoscopy planned Cataract History of high cholesterol Accelerated essential hypertension Surgical History Hx of section Tubal ligation status Family History Father HTN (hypertension) Aneurysm CAD (coronary artery disease) Mother HTN (hypertension) Social History Household Members: Significant Other Housing: House Are you a primary personal care worker to a significant other at home: No Do you presently have visiting nurse or other home services: No Alcohol intake: current Alcohol intake frequency: holidays/special occasions only Patient Tobacco Use Status: Never used Tobacco service: No Current occupational status: retired Sexual orientation: Straight/Heterosexual Gender identity: Female Female Reproductive History Menstrual Age of Menarche: 13 Review of Systems Const Denies weakness ENT Denies dizziness Card Denies chest pain, Denies chest pain with activity, Denies syncope, Denies rapid heart rate, Denies pedal edema, Denies edema, Denies leg edema, Denies lightheadedness, Denies palpitations, Denies dyspnea, Denies dyspnea on exertion and Denies orthopnea Resp Denies cough, Denies dyspnea and Denies dyspnea on exertion GI Denies hematochezia and Denies change in stool character Musc Denies abnormal gait, Denies muscle cramps, Denies muscle weakness, Denies numbness, Denies radiating pain into limb and Denies tingling Neuro Denies abnormal gait, Denies dizziness, Denies syncope, Denies numbness, Denies tingling and Denies weakness Endo Denies palpitations Physical Exam Vital Signs: Last Vital Signs Pulse 77 05/11/25 10:49 BP 126/66 05/11/25 10:49 BMI result Body Mass Index 26.7 Const General: comfortable and no acute distress Orientation/consciousness: patient oriented x3 HEENT Other: Unremarkable Head: Yes normal to inspection Neck Neck: Yes normal visual inspection Chest Chest palpation & inspection: normal inspection of the chest Resp Auscultation: clear to auscultation bilaterally Cardio Palpation: normal PMI Heart sounds: S1 normal heart sound present, S2 normal heart sound present, no gallops, no murmurs and no rubs GI Palpation (GI): Soft to palpation Back/Spine/Pelvis Other: unremarkable Skin General skin exam: no rashes or lesions noted Neuro General: patient oriented x3 Extrem General: Yes normal to inspection Psych Mental Status: mental status grossly normal Office Procedures EKG Details: EKG with underlying sinus rhythm at 77/Min; nonspecific ST-T changes; [place] [id number], Complete Assessment & Plan Assessment & Plan (1) Atherosclerotic cardiovascular disease: Code(s): I25.10 - Atherosclerotic heart disease of [place] coronary artery without angina pectoris Category: Medical (2) Primary hypertension: Code(s): I10 - Essential (primary) hypertension Category: Medical Plan Calcium score-951. Left main 104. LAD 627. Circumflex 150. RCA 69. The plan includes ordering a stress test and an echocardiogram to assess the functional impact of the coronary artery calcification and to evaluate cardiac function. The patient's atorvastatin dosage will be increased to further manage her hyperlipidemia, aiming to lower her cholesterol levels as much as possible to prevent further progression of coronary artery disease. Additionally, the patient is advised to take a daily baby aspirin, provided she does not experience any gastrointestinal side effects, to reduce the risk of thrombotic events. Follow-up is scheduled to review test results and adjust the treatment plan as necessary. Discussion Notes I discussed with the patient the significance of her coronary artery calcification score and the importance of managing her cardiovascular risk factors. We talked about the need for further testing, including a stress test and echocardiogram, to better understand her cardiac health. I explained the rationale for increasing her atorvastatin dosage and the potential benefits of taking a daily baby aspirin. We agreed on a follow-up plan to reassess her condition and adjust treatment as needed. Patient was informed and verbally consented to the use of an ambient scribe for clinic note documentation during this visit. Orders: Orders CA echo transthoracic complete Today I25.10 - Atherosclerotic heart disease of [place] coronary artery without angina pectoris CA stress test Today I25.10 - Atherosclerotic heart disease of [place] coronary artery without angina pectoris, R07.2 - Precordial pain NM cardiolite stress test Today R07.2 - Precordial pain Medications: New atorvastatin (Lipitor) 40 mg PO QPM 90 tabs 1RF Patient Instructions: - Take atorvastatin as prescribed and increase dosage as instructed. - Consider taking a daily baby aspirin if no gastrointestinal issues occur. - Attend scheduled stress test and echocardiogram appointments. - Follow up for review of test results and treatment plan adjustment. Coding Level of Care Code New Pt Level 4 (34874) Complex EM visit Add On G2211 Diagnoses Atherosclerotic cardiovascular disease I25.10 Primary hypertension I10 CPT Codes EKG - CPT: 12700-Elgrcjywirazujwvo, Complete ([id number])
[2025-05-11 10:49] VITALS: BP 126/66; PULSE 77; BMI 26.7
== END 2025-05-11 11:25 | disposition home or self-care (01) ==
LOC: HO.HCS 10:35
PROVIDERS: PCP Internal Medicine; Visit Provider Internal Medicine
DX: I25.10 Atherosclerotic heart disease of native coronary artery without angina pectoris (principal); I10 Essential (primary) hypertension
CPT/HCPCS: 93010; 99204; G2211

== ENCOUNTER → 2025-05-11 10:35 | Outpatient (BNVA) | payer MEDICARE, SELFPAY | PROVIDERS: PCP Internal Medicine; Visit Provider Internal Medicine | DX: I25.10 Atherosclerotic heart disease of native coronary artery without angina pectoris (principal); I10 Essential (primary) hypertension | CPT/HCPCS: 93005; 99202 ==

== ENCOUNTER → 2025-06-25 07:45 | Outpatient (REF) | payer MEDICARE, SELFPAY ==
--- OUTSIDE RECORDS SUMMARY | 2025-03-30 07:40 | XMS_ITS ---
Author Organization [facility] Address [address] [place] [address] Care Team Providers Care Provider Relations Consultant Name Role Phone RACHELLE, KARTIK Primary Care Provider Paulino Arciniega [phone] REASON FOR VISIT screening,hx polyps Encounters Encounter Location Date Provider Diagnosis [facility] [place] Out[place] [address] [place] [phone] 03/30/2025 Paulino Uriostegui Colon cancer scree brenda [...] * NESTOR VILLANUEVA ADOB:[birth year] (70 yo F)Acc No.[id number]:03/30/2025 COLON WITH MAC Patient: Efrain CABALLERONESTOR QUIÑONES Provider: Loretta Uriostegui MD :1955 A ge:69 Y S ex:Female Date:03/30/2025 Address:[address] [place], [place] [phone] Pcp:BRAD BUSH Subjective: * Chief Complaints: * [...] 0 03/30/2025 Generated for Ángel avila/Marty/Gildasmitting on: 0 06/25/2025 07:47 AM EDT
--- NOTE | ~2025-06-25 | NM_ITS ---
EXERCISE MYOCARDIAL PERFUSION STUDY INDICATION: Coronary artery disease TECHNIQUE: The patient was brought in for an exercise perfusion study on 06/25/2025. Patient performed exercise as per Davion protocol and was injected 25 mCi of sestamibi once target heart rate was achieved. Images were obtained using the SPECT gamma camera interlaced with the gating device. Images were obtained in supine position. Resting perfusion study was performed on 06/26/2025. Patient was administered 25 mCi of sestamibi intravenously at rest. Images were then obtained in supine position. Total DLP 75 mGy-cm. Images were processed with the software and compared side to side in short axis, horizontal long axis and vertical long axis views. FINDINGS: Raw aquisition reviewed. The stress perfusion study showed no significant perfusion abnormality. Both uncorrected as well as CT attenuation corrected images were reviewed. The gated study shows normal LV systolic function with calculated LVEF of > 70%. LV cavity is normal in size. The gated study shows normal wall thickening and contraction of segments. Resting study shows no significant perfusion abnormality. Gating at rest reveals normal wall motion with ejection fraction at > 70%. The findings are consistent with no clear reversible or fixed perfusion abnormality. NM/NM cardiolite stress test IMPRESSION: 1. Myocardial perfusion imaging study shows normal myocardial perfusion. 2. Gated LVEF is > 70% during stress and rest. 3. Transient ischemic dilatation not present. EKG component of the test reported separately. Electronically signed by: Nate Hunt MD 06/29/2025 04:29 PM EDT
--- NOTE | 2025-06-25 07:48 | CA_ITS ---
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 Study Quality: Adequate ECG Rhythm: Sinus Conclusions: - 1. Normal LV ejection fraction of 55-60% with elevated filling pressures 2. Mildly dilated left atrium 3. Calcific mitral valve changes noted with normal cardiac valvular Dopplers 4. Normal LV systolic pressure 5. No gross pericardial effusion Findings Left Ventricle Normal left ventricular size, thickness, and systolic function. The visually estimated ejection fraction is between 55-60%. Elevated filling pressures. Right Ventricle Normal right ventricular cavity size and systolic function. Atria The left atrium is mildly dilated. There is no evidence of interatrial shunt. The right atrium is likely dilated. Aortic Valve Normal aortic valve structure and function. There is no aortic valve stenosis. There is no aortic valve regurgitation. Mitral Valve There is mild anterior and posterior mitral leaflet thickening. There is mild mitral annular calcification. There is trace mitral valve regurgitation. There is no mitral valve stenosis. Pulmonic Valve The pulmonic valve is likely normal. There is trace pulmonic valve regurgitation. Tricuspid Valve Normal tricuspid valve structure. There is trace tricuspid valve regurgitation. The right ventricular systolic pressure is normal. The right ventricular systolic pressure is 33 mmHg. Normal right atrial pressure. There is no evidence of pulmonary hypertension. Great Vessels All visible segments of the aorta are normal in size. The pulmonary artery was not well visualized. There is no dilatation of the ascending aorta measuring 3.40 cm. Small plaque is seen in the sino tubular ridge. Venous The inferior vena cava is normal in size and collapses greater than 50% with inspiration. Pericardium/Pleural There is no evidence of pericardial effusion. Prior Study Comparison No prior study available for comparison. Measurements 2D Linear Measurements IVSd: 0.89 0.6-0.9/0.6-1.0 cm LVIDd: 4.55 3.9-5.3/4.2-5.9 cm LVIDd Index: 2.47 2.4-3.2/2.2-3.1 cm/m2 LVIDs: 2.97 2.0-3.6 cm LVPWd: 0.91 0.7-1.1 cm LA Diam: 3.90 2.7-3.8/3.0-4.0 cm LAIDs Index: 2.12 1.5-2.3 cm/m2 LV Mass: 168.58 67-162/88-224 g LV Mass Index: 91.62 43-95/49-115 g/m2 LVOT Diam: 2.00 3.0+(-)1.3 cm 2D Systolic Function EF 4C: 59.30 >55% EF 2C: 56.70 >55% EF BiP: 57.90 >55% Mitral Valve MV VTI: 0.23 MV Pk Cayden: 1.06 MV Mn [place]den: 0.80 MV Pk Grad: 4.00 MV Mn Grad: 3.00 MV Pk E: 1.02 MV PK A: 1.12 MV Decel Time: 137.00 E/A: 0.90 E'Lateral: 6.64 E'Medial: 4.79 E/E' Med: 21.30 E/E' Lat: 15.40 PHT: 40.00 MVA PHT: 5.50 MVA Continuity: 3.27 Decel Hayes: 7.41 Aortic Valve AoV Pk Cayden: 1.31 AoV Mn [place]: 0.87 AoV VTI: 0.28 AoV Pk Grad: 7.00 Aov Mn Grad: 3.00 ALEX Cont.VTI: 2.67 LVOT LVOT Pk Cayden: 1.05 LVOT Mn [place]: 0.76 LVOT VTI: 0.24 LVOT Pk Grad: 4.00 LVOT Mn Grad: 3.00 LVOT Diam: 2.00 LVOT Area: 3.14 Diastolic Function MV Pk E: 1.02 MV Pk A: 1.12 E/A: 0.90 E'Medial: 4.79 E/E' Med: 21.30 E' Laterial: 6.64 E/E' Lat: 15.40 Right Ventricle TAPSE (mm): 25.60 TVS' Cayden: 16.90 Tricuspid Valve TR Pk [place]: 2.75 TR Pk Grad: 30.00 RA Press: 3.00 RVSP: 33.00 Great Vessels Aorta Sinus of Valsalva: 3.40 2.0-3.5 cm Ao Asc: 3.40 2.1-3.4 cm Pulmonary Veins Pulm Vein S/D 1.50 Pulmonary Valve PV Pk Cayden: 1.03 Peak PV Grad: 4.00 Updated in Other Vendor System with Status of Final Jamie Barnett MD electronically signed on 06/25/2025 2:46:56 PM with status of Final
--- NOTE | 2025-06-25 07:48 | CA_ITS ---
Acquisition Time: 2025-06-25 09:14:24 Total Exercise Time: 00:05:25 Test Indications: Screening for CAD Medications: ATENOLOL ATORVASTATIN LOSARTAN Protocol: ARMANDO Max HR: 153 BPM 102% of Pred: 150 BPM Max BP: 220/78 mmHG Max Work Load: 7.0 METS Exercise stress test with exercise 5 mins 25 secs of Armando Protocol, achieving 100% MPHR, with reports of SOB, no chest pain, with isolated PVCs, with hypertensive response to exercise - max BP 220/78. With baseline nonspecific ST that became more prominent with exercise. In recovery, with downsloping ST inferiorly and in leads V3-V6, suggestive of ischemia. In recovery, pt took her atenolol and BP slowly improved to baseline. Breathing returned to baseline. ST segment improved. Nuclear images pending. Test reviewed with Dr. Acevedo. Referred By: Nate Hunt Electronically Signed By: Reginaldo Guzman
--- OUTSIDE RECORDS SUMMARY | 2025-06-25 07:48 | XMS_ITS | Patient Health Record ---
Author Organization [facility] Address [address] [place] [address] Care Team Providers Care Slunk Skin Curer Name Role Phone BRAD BUSH Primary Care Provider Paulino Arciniega [phone] Allergies Allergen (clinical drug ingredient) Drug/Non Drug Allergy documented on EMR Reaction Allergy Type Onset Date Status amoxicillin Amoxicillin Unknown Drug Allergy Act niraj Results Component Value Reference Range Notes Pathology (Not yet reviewed by provider) Interpretation: Performing Lab:[facility], [address] [place] [phone] Notes/Report: Reason For Referral No Information Medications Medication SIG (Take, Route, Frequency, Duration) Notes Start Date End Date Status Atenolol 25 MG Oral for 90 Days Active Losartan Potassium 50 MG TAKE 1 TABLET B Y MOUTH EVERY DAY Oral for 90 Days Active Multivitamin Active Calcium Active Atorvastatin Calcium 10 MG TAKE 1 TABLET BY MOUTH EVERY DAY Oral for 90 Days Active Immunizations Vaccine Route Administration Date Status Comme nts Influenza Unknown 05/20/2024 Administered Social History Tobacco Use: Social History Observation [...] Negative Section Notes: Nonsmoker; no sig alcohol Nonsmoker; no sig alcohol Problems Problem Type SNOMED Code ICD Code Onset Dates Problem Status W/U Status Risk Notes Problem 528109245 Encounter for screening for malignant neoplasm of colon (Z12.11) Active confirmed Problem History of polyp of colon (situation) (811467404) Personal history of colonic polyps (Z86.010) Active confirmed Problem [id number] Preprocedural examination (Z01.818) Active confirmed Vital Signs Temperature 99.1 degrees Fahrenheit 12/31/2024 Blood pressure diastolic 01 mm Hg 12/31/2024 Height 66 in 12/31/2024 Blood pressure systolic 001 mm Hg 12/31/2024 Weight 165 lbs 12/31/2024 BMI 26.63 kg/m2 12/31/2024 Procedures Procedure Date Ordered Date Performed Result Body Sit e COLONOSCOPY 12/31/2024 N/A Encounters Encounter Location Date Provider Diagnosis [facility] [place] [address] [place] [id number] 03/30/2025 Paulino Uriostegui Colon cancer screeni ng Z12.11 ; Personal history of adenomatous and serrated colon polyps Z86.0101 ; Colon polyps K63.5 and Diverticulosis of large intestine without perforation or abscess without bleeding K57.30 [facility] [address] [address] [place] [phone] 12/31/2024 Paulino Uriostegui Encounter for screen ing for malignant neoplasm of colon Z12.11 ; Preprocedural examination Z01.818 and Personal history of colonic polyps Z86.010 [facility] [address] [place] [phone] 03/26/2025 Paulino Uriostegui Assessments Encounter Date Diagnosis (ICD Code) Assessment Notes Treatment Notes Treatment Clinical Notes Section Notes 03/30/2025 Colon cancer screening (ICD-10 - Z12.11) 03/30/2025 Personal history of adenomatous and serrated colon polyps (ICD-10 - Z86.0101) 12/31/2024 Encounter for screening for malignant neoplasm of colon (ICD-10 - Z12.11) Overall, Nestor appears quite well. She is not having any new or worrisome GI complaints. Given her age, good clinical appearance, previous history of a tubualr adenoma, and her last colonoscopy being over 5 years ago, I recommended a follow up colonoscopy for further screening purposes. We did review the rationale for that in regard to colon cancer prevention. Full consent has been obtained for this, including risks of bleeding and perforation. The procedure will be done with monitored anesthesia care. Nestor was comfortable with this plan. Thanks you oscar for allowing me to participate in Nestor's care. I shall continue to keep you advised of her progress, 12/31/2024 Preprocedural examination (ICD-10 - Z01.818) Overall, Nestor appears quite well. She is not having any new or worrisome GI complaints. Given her age, good clinical appearance, previous history of a tubualr adenoma, and her last colonoscopy being over 5 years ago, I recommended a follow up colonoscopy for further screening purposes. We did review the rationale for that in regard to colon cancer prevention. Full consent has been obtained for this, including risks of bleeding and perforation. The procedure will be done with monitored anesthesia care. Nestor was comfortable with this plan. Thanks you oscar for allowing me to participate in Nestor's care. I shall continue to keep you advised of her progress, 03/30/2025 Colon polyps (ICD-10 - K63.5) 12/31/2024 Personal history of colonic polyps (ICD-10 - Z86.010) Overall, Nestor appears quite well. She is not having any new or worrisome GI complaints. Given her age, good clinical appearance, previous history of a tubualr adenoma, and her last colonoscopy being over 5 years ago, I recommended a follow up colonoscopy for further screening purposes. We did review the rationale for that in regard to colon cancer prevention. Full consent has been obtained for this, including risks of bleeding and perforation. The procedure will be done with monitored anesthesia care. Nestor was comfortable with this plan. Thanks you osacr for allowing me to participate in Nestor's care. I shall continue to keep you advised of her progress, 03/30/2025 Diverticulosis of large intestine without perforation or abscess without bleeding (ICD-10 - K57.30) Plan Of Treatment Pending Test Test Name Order Date COLONOSCOPY 12/31/2024 Pathology 03/30/2025 Future Test Test Name Order Date COLONOSCOPY 04/24/2017 Insurance Providers Payer Name Payer Address Payer Phone Subscriber Number Group Number Insured Name Patient Relationship to Insured Coverage Start Date Coverage End Date MEDICARE OF [place] [address] [place] [id number] DC HARDIN NESTOR Self - patient is the insured MEDEX ATTN CLAIMS [address] [place] [address] [phone] [id number] DC NESTOR HARDIN Self - patient is the insured Medical (General) History Medical History History ICD Code Denies DC,DM,CVA,Lung disease,renal dise ase Hypertension Hypercholesterolemia Neg screening colonoscopy in 2006 Colonoscopy in 08/2017 with a small tubu lar adenoma removed Surgical History Surgery Date(Month/Year) Cataracts 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 Endometriosis with laparotomies
== END ==
LOC: HO.CARD 07:45
PROVIDERS: Visit Provider Internal Medicine
DX: I25.10 Atherosclerotic heart disease of native coronary artery without angina pectoris (principal); R07.2 Precordial pain
CPT/HCPCS: 78452; 93017; 93306; A9500

== ENCOUNTER → 2025-06-25 07:48 | Outpatient (BNV) | payer MEDICARE, SELFPAY | DX: I34.81 Nonrheumatic mitral (valve) annulus calcification (principal); I49.3 Ventricular premature depolarization; R06.02 Shortness of breath | CPT/HCPCS: 78452; 93016; 93018; 93320; 93325; 93350 ==

== ENCOUNTER 2025-08-03 15:06 | Outpatient (AMB) | payer MEDICARE, SELFPAY ==
--- OUTSIDE RECORDS SUMMARY | 2025-03-30 06:40 | XMS_ITS ---
Author Organization [facility] Address [address] [place] [address] Care Team Providers Care Supplier Quality Engineer Name Role Phone RACHELLE, KARTIK Primary Care Provider Paulino Arciniega [phone] REASON FOR VISIT screening,hx polyps Encounters Encounter Location Date Provider Diagnosis [facility] [place] [address] [place] [id number] 03/30/2025 Paulino Uriostegui Colon cancer scree brenda Z12.11 ; Personal history of adenomatous and serrated colon polyps Z86.0101 ; Colon polyps K63.5 and Diverticulosis of large intestine without perforation or abscess without bleeding K57.30 Assessments Encounter Date Diagnosis (ICD Code) Assessment Notes Treatment Notes Treatment Clinical Notes Section Notes 03/30/2025 Colon cancer screening (ICD-10 - Z12.11) 03/30/2025 Personal history of adenomatous and serrated colon polyps (ICD-10 - Z86.0101) 03/30/2025 Colon polyps (ICD-10 - K63.5) 03/30/2025 Diverticulosis of large intestine without perforation or abscess without bleeding (ICD-10 - K57.30) Plan Of Treatment No Information Progress Notes * NESTOR VILLANUEVA ADOB:[birth year] (70 yo F)Acc No.[id number]:03/30/2025 COLON WITH MAC Patient: Efrain CABALLERONESTOR QUIÑONES Provider: Loretta Uriostegui MD :1955 A ge:69 Y S ex:Female Date:03/30/2025 Address:[address] [place], [place] [phone] Pcp:BRAD BUSH Subjective: * Chief Complaints: * 1 . Screening,hx polyps. * Medical History: Objective: * Vitals: Assessment: * Assessment: 1. C olon cancer screening - Z12.11 (Primary) 2 . P ersonal history of adenomatous and serrated colon polyps - Z86.0101 3 . C olon polyps - K63.5 ? 4 . D iverticulosis of large intestine without perforation or abscess without bleeding - K57.30 Plan: * Treatment: * Procedure Codes: 4 5380 COLONOSCOPY AND BIOPSY, Modifiers: PT , 0529F INTRVL 3+YRS PTS CLNSCP DOCD, 0528F RCMND FLW-UP 10 YRS DOCD, Modifiers: 1P * * The named appointment provid er may or may not be the originator of this progress note, and it is not deemed complete until electronically signed by the appointment provider. Sign off status: Pending * Provider: Loretta Uriostegui MD Date: 0 03/30/2025 Generated for Ángel avila/Marty/Gildasmitting on: 10/03/2024 04:28 PM EST
--- NOTE | 2025-08-03 15:08 | A.OFFPC_ITS ---
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 Required: No Accompanied by: Self / Same As Patient Allergies adhesive (ADHESIVE) Allergy (Intermediate, Verified 08/03/25 15:08) RASH amoxicillin Allergy (Intermediate, Verified 08/03/25 15:08) rash Penicillins (PENICILLINS) Allergy (Intermediate, Verified 08/03/25 15:08) RASH Medication List - Last Reconciled 08/03/25 by HUA Castro albuterol sulfate 90 mcg/actuation (Ventolin HFA) 2 puffs inhalation Q4-6H PRN apple cider vinegar mg PO aspirin 81 mg PO DAILY atenolol 25 mg PO DAILY atorvastatin (Lipitor) 40 mg PO QPM calcium carbonate (Calcium 500) 1,250 mg PO DAILY loratadine (Allergy Relief (loratadine)) 10 mg PO DAILY PRN losartan 50 mg PO DAILY multivitamin 1 tab PO DAILY prednisone 40 mg (2 x 20 mg) PO DAILY HPI HPI Comments History of Present Illness Details 70-year-old female with history of hyper lipidemia, hypertension, atherosclerosis, cataracts presenting to the office today to establish care and for evaluation. Hypertension-blood pressure initially 160/98, recheck 158/98. Has been taking cough syrups with intractable cough likely contributing to elevated blood pressures. Previously blood pressures have been well-controlled. On losartan 50 mg daily and atenolol 25 mg daily. Hyperlipidemia/atherosclerotic cardiovascular disease-[place] [facility] [place]. Has upcoming MIBI stress test. On aspirin, atenolol, Lipitor. Due for updated lipid panel Concerns: Reports she had an upper respiratory infection about 3 weeks ago and has been having a persistent dry cough and postnasal drip. Reports otherwise she is feeling okay. No fevers, chills, sore throat, sinus pain, ear pain, shortness breath, wheezing, chest pains. Reports the cough comes and goes. She has been using medications such as NyQuil, Mucinex, saline nasal sprays. She has not trialed oral antihistamines. Denies any known history of environmental allergies ROS: see hpi EXAM: Constitutional - Awake and Alert, No apparent distress Eyes - PERRL Cardiovascular - S1S2, RRR, No edema Respiratory - Normal lung expansion, Normal respiratory effort, No respiratory distress, CTA bilaterally Extremities - no calf tenderness bilaterally, no swelling Skin - Warm/Dry Neurological - Alert & oriented x3 Psychological - Appropriate affect [facility] Medical History (Updated 08/03/25 @ 17:17 by HUA Castro) Primary hypertension Atherosclerotic cardiovascular disease Dysplasia of cervix, low grade (GILLIAN 1) Colonoscopy planned Cataract History of high cholesterol Accelerated essential hypertension Surgical History Hx of section Tubal ligation status Family History Father HTN (hypertension) Aneurysm CAD (coronary artery disease) Mother HTN (hypertension) Social History Household Members: Significant Other Housing: House Are you a primary home care administrator to a significant other at home: No Do you presently have visiting nurse or other home services: No Alcohol intake: current Alcohol intake frequency: holidays/special occasions only Patient Tobacco Use Status: Never used Tobacco service: No Current occupational status: retired Sexual orientation: Straight/Heterosexual Gender identity: Female Female Reproductive History Menstrual Age of Menarche: 13 Physical exam (Primary Care) Vital Signs: Last Vital Signs Temp 97.7 F 08/03/25 15:10 Pulse 91 08/03/25 15:10 Resp 20 08/03/25 15:10 BP 158/98 H 08/03/25 15:29 Pulse Ox 97 08/03/25 15:10 Oxygen Delivery Method Room Air 08/03/25 15:10 BMI result Body Mass Index 28.7 Tobacco/Smoking Status: Tobacco use Status Patient Tobacco Use Status Never used Tobacco 08/03/25 15:10 Coding Level of Care Code New Pt Level 4 (29119) Complex EM visit Add On G2211 Diagnoses Dry cough R05.8 Post-nasal drip R09.82 Primary hypertension I10 Hyperlipidemia, unspecified E78.5 Assessment & Plan Assessment & Plan (1) Dry cough: Code(s): R05.8 - Other specified cough Category: Medical Plan: No evidence of acute infection or bronchitis. Possible reactive airway. Recommend Claritin, fluticasone. Will also give course of prednisone 40 mg x 5 days. Albuterol inhaler also ordered. (2) Post-nasal drip: Code(s): R09.82 - Postnasal drip Category: Medical Plan: See above (3) Primary hypertension: Code(s): I10 - Essential (primary) hypertension Category: Medical Plan: Uncontrolled, likely related to cough medicine and cough that is persisting and violent. (4) Hyperlipidemia, unspecified: Code(s): E78.5 - Hyperlipidemia, unspecified Category: Medical Plan: Lipid panel ordered. Continue atorvastatin 40 mg daily Plan Follow-up in 1 month as scheduled. Labs to be completed several days prior to visit Orders: Orders Lipid Panel 1 Month E78.5 - Hyperlipidemia, unspecified, I10 - Essential (primary) hypertension, I25.10 - Atherosclerotic heart disease of [place] coronary artery without angina pectoris, M85.80 - Other specified disorders of bone density and structure, unspecified site Basic Metabolic Panel 1 Month E78.5 - Hyperlipidemia, unspecified, I10 - Essential (primary) hypertension, I25.10 - Atherosclerotic heart disease of [place] coronary artery without angina pectoris, M85.80 - Other specified disorders of bone density and structure, unspecified site Complete Blood Count Auto Diff 1 Month E78.5 - Hyperlipidemia, unspecified, I10 - Essential (primary) hypertension, I25.10 - Atherosclerotic heart disease of [place] coronary artery without angina pectoris, M85.80 - Other specified disorders of bone density and structure, unspecified site Liver Panel 1 Month E78.5 - Hyperlipidemia, unspecified, I10 - Essential (sharath alyssa) hypertension, I25.10 - Atherosclerotic heart disease of [place] coronary artery without angina pectoris, M85.80 - Other specified disorders of bone density and structure, unspecified site Vitamin D 25-OH Total 1 Month E78.5 - Hyperlipidemia, unspecified, I10 - Essential (primary) hypertension, I25.10 - Atherosclerotic heart disease of [place] coronary artery without angina pectoris, M85.80 - Other specified disorders of bone density and structure, unspecified site Medications: New albuterol sulfate 90 mcg/actuation (Ventolin HFA) 2 puffs inhalation Q4-6H PRN 8.5 grams 1RF shortness of breath or wheezing loratadine (Allergy Relief (loratadine)) 10 mg PO DAILY PRN 90 caps 0RF allergy symptoms prednisone 40 mg (2 x 20 mg) PO DAILY 10 tabs 0RF benzonatate 100 mg PO TID PRN 90 caps 0RF cough
[2025-08-03 15:10] VITALS: BP 160/98; PULSE 91; RESP 20; TEMP 36.5; O2SAT 97; BMI 28.7
[2025-08-03 15:29] VITALS: BP 158/98
--- OUTSIDE RECORDS SUMMARY | 2025-08-03 16:28 | XMS_ITS | Patient Health Record ---
Author Organization [facility] Address [address] [place] [address] Care Team Providers Care Auto Winder Name Role Phone BRAD BUSH Primary Care Provider Paulino Arciniega [phone] Allergies Allergen (clinical drug ingredient) Drug/Non Drug Allergy documented on EMR Reaction Allergy Type Onset Date Status amoxicillin Amoxicillin Unknown Drug Allergy Act niraj Results Component Value Reference Range Notes Pathology (Not yet reviewed by provider) Interpretation: Performing Lab:[facility], [address] [place] [id number] Notes/Report: Reason For Referral No Information Medications Medication SIG (Take, Route, Frequency, Duration) Notes Start Date End Date Status Atenolol 25 MG Oral; Duration: 90 Days Active Losartan Potassium 50 MG TAKE 1 TABLET B Y MOUTH EVERY DAY Oral; Duration: 90 Days Active Multivitamin Active Calcium Active Atorvastatin Calcium 10 MG TAKE 1 TABLET BY MOUTH EVERY DAY Oral; Duration: 90 Days Active Immunizations Vaccine Route Administration [...] Problem Status W/U Status Risk Notes Problem Screening for malignant neoplasm of colon (113416474) Encounter for screening for malignant neoplasm of colon (Z12.11) Active confirmed Problem History of polyp of colon (situation) (991441009) Personal history of colonic polyps (Z86.010) Active confirmed Problem Preprocedural examination (621088874606374) Preprocedural examination (Z01.818) Active confirmed Vital Signs Temperature 99.1 degrees Fahrenheit 12/31/2024 Blood pressure diastolic 01 mm Hg 12/31/2024 Height 66 in 12/31/2024 Blood pressure systolic 001 mm Hg 12/31/2024 Weight 165 lbs 12/31/2024 BMI 26.63 kg/m2 12/31/2024 Procedures Procedure Date Ordered Date Performed Result Body Sit e COLONOSCOPY 12/31/2024 N/A Encounters Encounter Location Date Provider Diagnosis [facility] [place] [address] [place] [phone] 03/30/2025 Paulino Uriostegui Colon cancer screeni ng Z12.11 ; Personal history of adenomatous and serrated colon polyps Z86.0101 ; Colon polyps K63.5 and Diverticulosis of large intestine without perforation or abscess without bleeding K57.30 [facility] [address] [place] [phone] 12/31/2024 Paulino Uriostegui Encounter for screen ing for malignant neoplasm of colon Z12.11 ; Preprocedural examination Z01.818 and Personal history of colonic polyps Z86.010 [facility] [address] [place] [phone] 03/26/2025 Paulino Uriostegui Assessments Encounter Date Diagnosis [...] OF [place] [address] [place] [address] [id number] NESTOR CORRAL Self - patient is the insured MED[employer] ATTN CLAIMS [address] [place] [address] [phone] [id number] NESTOR CORRAL Self - patient is the insured Medical (General) History Medical History History ICD Code Denies MS,DM,CVA,Lung disease,renal dise ase Hypertension Hypercholesterolemia Neg screening colonoscopy in 2006 Colonoscopy in 08/2017 with a small tubu lar adenoma removed Surgical History Surgery Date(Month/Year) Cataracts 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 Endometriosis with laparotomies
== END 2025-08-03 16:47 | disposition home or self-care (01) ==
PROVIDERS: PCP Physician Assistant; Visit Provider Physician Assistant
DX: R05.8 Other specified cough (principal); R09.82 Postnasal drip; I10 Essential (primary) hypertension; E78.5 Hyperlipidemia, unspecified

== ENCOUNTER → 2025-08-03 15:06 | Outpatient (BNVA) | payer MEDICARE, SELFPAY | PROVIDERS: Visit Provider Physician Assistant | DX: Z76.89 Persons encountering health services in other specified circumstances (principal); R05.8 Other specified cough; R09.82 Postnasal drip; I10 Essential (primary) hypertension; E78.5 Hyperlipidemia, unspecified; Z79.899 Other long term (current) drug therapy | CPT/HCPCS: 99202 ==

== ENCOUNTER 2025-08-21 08:55 | Outpatient (AMB) | payer MEDICARE, SELFPAY ==
--- OUTSIDE RECORDS SUMMARY | 2025-03-30 06:40 | XMS_ITS ---
Author Organization [facility] Address [address] [place] [address] Care Team Providers Care Merchant Patroller Name Role Phone RACHELLE, KARTIK Primary Care Provider Paulino Arciniega [phone] REASON FOR VISIT screening,hx polyps Encounters Encounter Location Date Provider Diagnosis [facility] Outpatient [address] [place] [phone] 03/30/2025 Paulino Uriostegui Colon cancer scree brenda [...] * NESTOR VILLANUEVA ADOB:[birth year] (70 yo F)Acc No.[id number]:03/30/2025 COLON WITH MAC Patient: Efrain CABALLERONESTOR QUIÑONES Provider: Loretta Uriostegui MD :1955 A ge:69 Y S ex:Female Date:03/30/2025 Address:[address] [place], [place] [phone] Pcp:BRAD BUSH Subjective: * Chief Complaints: * S creening,hx polyps Assessment: * Assessment: 1. C olon cancer screening - Z12.11 (Primary) 2 . P ersonal history of adenomatous and serrated colon polyps - Z86.0101 3 . C olon polyps - K63.5 ? 4 . D iverticulosis of large intestine without perforation or abscess without bleeding - K57.30 Plan: * Procedure Codes: 4 5380 COLONOSCOPY AND BIOPSY, Modifiers: PT 0529F INTRVL 3+YRS PTS CLNSCP [id number] RCMND FLW-UP 10 YRS DOCD, Modifiers: 1P Billing Information: * Procedure Codes: 83838 COLONOSCOPY AND BIOPSY. Modifiers: PT 0529F INTRVL 3+YRS PTS CLNSCP DOCD. 0528F RCMND FLW-UP 10 YRS DOCD. Modifiers: 1P * The named appointment provid er may or may not be the originator of this progress note, and it is not deemed complete until electronically signed by the appointment provider. Sign off status: Pending * Provider: Loretta Uriostegui MD Date: 0 03/30/2025 Generated for Ángel avila/Marty/Kathrineitting on: 10/21/2024 09:06 AM EST
--- NOTE | 2025-08-21 09:02 | MHC.OFFVIS ---
Vital Signs 08/21/25 09:03 Height 5 ft 6 in Weight 172 lb 6.424 oz BMI 27.8 BP 164/80 H Blood Pressure Location Lt brachial Position Sitting Pulse 82 Pulse Source Pulse Oximeter Intake Visit Reasons: 3 mth f/up mibi/ echo HS r/s 08-13-25 Kinesiologist Required: No Allergies adhesive (ADHESIVE) Allergy (Intermediate, Verified 08/21/25 09:06) RASH amoxicillin Allergy (Intermediate, Verified 08/21/25 09:06) rash Penicillins (PENICILLINS) Allergy (Intermediate, Verified 08/21/25 09:06) RASH Medication List - Last Reconciled 08/21/25 by YIFAN Horner albuterol sulfate 90 mcg/actuation (Ventolin HFA) 2 puffs inhalation Q4-6H PRN apple cider vinegar mg PO aspirin 81 mg PO DAILY atenolol 25 mg PO DAILY atorvastatin (Lipitor) 40 mg PO QPM benzonatate 100 mg PO TID PRN calcium carbonate (Calcium 500) 1,250 mg PO DAILY loratadine (Allergy Relief (loratadine)) 10 mg PO DAILY PRN losartan 50 mg PO DAILY multivitamin 1 tab PO DAILY prednisone 40 mg (2 x 20 mg) PO DAILY HPI HPI 3 mth f/up mibi/ echo HS r/s 08-13-25: Details: The patient is a 70 year old individual presenting for follow-up of coronary artery disease. A recent CT scan revealed coronary calcifications, and a subsequent coronary calcium score was 99. The patient's cardiac risk factors include hypertension, hyperlipidemia, and a family history of coronary artery disease, with a brother who had a fatal myocardial infarction at age 65. There is no history of diabetes or prior smoking. An echocardiogram on 06/25/2025 showed an ejection fraction of 55-60%, a mildly dilated left atrium, and calcific mitral valve changes with normal cardiac valve dopplers. An exercise nuclear stress test on the same day showed the patient exercised for 5.5 minutes with shortness of breath, a hypertensive response to exercise, and borderline ST changes; however, the nuclear scan demonstrated normal myocardial perfusion with an ejection fraction greater than 70% during stress and rest. The patient's current medications include aspirin, atorvastatin, atenolol, and losartan. The atorvastatin dose was recently increased from 10 mg to 40 mg. Labs from 09/16/2024 showed creatinine 0.75 mg/dL, AST 19 U/L, ALT 25 U/L, and LDL 93 mg/dL. She reports planned PCP office visit on 09/07/25 and will be getting labs prior to that visit. The patient reports feeling well and denies chest pain, pressure, heaviness, palpitations, dizzy spells, or leg swelling. The patient experiences shortness of breath with exertion, such as during the stress test, which she is attributed to deconditioning. The patient has no routine exercise regimen but occasionally walks and reports being out of shape since the COVID-19 pandemic. She wants to start going to the gym after the holidays. BP elevated today but she reports that usually it is normal. [facility] Medical History (Updated 08/03/25 @ 17:17 by HUA Castro) Primary hypertension Atherosclerotic cardiovascular disease Dysplasia of cervix, low grade (GILLIAN 1) Colonoscopy planned Cataract History of high cholesterol Accelerated essential hypertension Surgical History Hx of section Tubal ligation status Family History Father HTN (hypertension) Aneurysm CAD (coronary artery disease) Mother HTN (hypertension) Social History Household Members: Significant Other Housing: House Are you a primary neonatal intensive care unit nurse to a significant other at home: No Do you presently have visiting nurse or other home services: No Alcohol intake: current Alcohol intake frequency: holidays/special occasions only Patient Tobacco Use Status: Never used Tobacco service: No Current occupational status: retired Sexual orientation: Straight/Heterosexual Gender identity: Female Female Reproductive History Menstrual Age of Menarche: 13 Review of Systems Const All systems reviewed & are unremarkable except as noted in HPI and below ENT Denies dizziness Card Denies chest pain, Denies chest pain at rest, Denies chest pain with activity, Denies rapid heart rate, Denies pedal edema, Denies edema, Denies leg edema, Denies lightheadedness, Denies palpitations, Denies dyspnea, Denies dyspnea on exertion and Denies orthopnea Resp Denies cough, Denies dyspnea and Denies dyspnea on exertion GI Denies hematochezia and Denies change in stool character Musc Denies abnormal gait, Denies limited range of motion, Denies muscle cramps, Denies muscle weakness, Denies numbness, Denies radiating pain into limb, Denies stiffness and Denies tingling Neuro Denies abnormal gait, Denies dizziness, Denies numbness and Denies tingling Endo Denies palpitations Physical Exam Vital Signs: Last Vital Signs Pulse 82 08/21/25 09:03 BP 164/80 H 08/21/25 09:03 BMI result Body Mass Index 27.8 Const General: cooperative, healthy appearing, comfortable and no acute distress Orientation/consciousness: patient oriented x3 Neck Neck: Yes normal visual inspection Resp Effort & Inspection: normal respiratory effort Auscultation: clear to auscultation bilaterally, no crackles, no rales, no rhonchi and no wheezes Cardio Rate: regular rate Rhythm: regular rhythm Heart sounds: S1 normal heart sound present, S2 normal heart sound present, no gallops, no murmurs and no rubs Neuro General: patient oriented x3 Extrem General: Yes normal to inspection and No no pedal edema Psych Appearance: grossly normal Mental Status: mental status grossly normal Speech and movement: Normal speech and movement present Assessment & Plan Assessment & Plan (1) Atherosclerotic cardiovascular disease: Code(s): I25.10 - Atherosclerotic heart disease of [place] coronary artery without angina pectoris Category: Medical Plan: Nonobstructive coronary artery disease based on recent cardiac testing. Currently no anginal symptoms. Continue with risk factor modification. Continue aspirin indefinitely. Continue atorvastatin with ideal LDL goal less than 70. Continue atenolol and losartan for good blood pressure control. Physical activity as tolerated. Cardiology follow-up six months with Dr. Hunt requested. (2) Primary hypertension: Code(s): I10 - Essential (primary) hypertension Category: Medical Plan: Blood pressure goal less than 130/80. Elevated today. She reports that this is atypical for her. Blood pressure was elevated at the time of stress test as well. She likely needs an increase in antihypertensive agents. Will have her follow a low salt diet. Check home blood pressures and keep a log, bring to upcoming PCP visit. If blood pressure remains elevated with systolic greater than 130 then recommend increase in losartan dose. Will forward this note to her PCP. (3) Hyperlipidemia, unspecified: Code(s): E78.5 - Hyperlipidemia, unspecified Category: Medical Plan: LDL goal less than 70. Labs done 09/16/2024 showed LDL 93. She was on atorvastatin 10 mg at that time and dose was increased up to 40 mg daily. She has upcoming fasting lipids due Plan I explained to the patient that the coronary calcium score of 99 confirms the presence of calcified plaque in the heart arteries. I reviewed the nuclear stress test results, clarifying that while the patient experienced shortness of breath, the scan showed normal blood flow, indicating the arteries are not significantly blocked at this time. I also discussed the echocardiogram findings, noting that the mitral valve leaflets have some calcification but are functioning normally without leakage. I emphasized the goal of preventing further plaque buildup to reduce the risk of future events like a heart attack. I addressed the elevated blood pressure reading, explaining the target of less than 130/80 and recommending home monitoring, a low-salt diet, and follow-up with the primary care provider for possible medication adjustment. We discussed the importance of lowering the LDL cholesterol to below 70 and will re-evaluate with new labs following the recent increase in the atorvastatin dose. I confirmed the patient is on daily aspirin and explained its role in preventing clots. I advised the patient it is safe to return to the gym and encouraged regular physical activity. We scheduled a six-month follow-up visit to monitor these risk factors. Patient Instructions: - Continue to take your daily medications as prescribed, including aspirin, atorvastatin, atenolol, and losartan. - Check your blood pressure at home sometimes before your next doctor's visit on the . - Keep a log of your home blood pressure readings and share it with your primary care doctor. - Follow a low-salt diet to help manage your blood pressure. - It is safe for you to go back to the gym and resume regular exercise. - Please schedule a follow-up appointment here in six months. - If you have any issues in the meantime, such as new chest pain, pressure, or shortness of breath, please let us know so we can see you sooner. Patient was informed and verbally consented to the use of an ambient scribe for clinic note documentation during this visit. Visit time spent on chart review, interview, assessment, orders, documentation. Coding Level of Care Code Complex visit Add On G2211 Diagnoses Atherosclerotic cardiovascular disease I25.10 Primary hypertension I10 Hyperlipidemia, unspecified E78.5 Time Spent (min) 28
[2025-08-21 09:03] VITALS: BP 164/80; PULSE 82; BMI 27.8
--- OUTSIDE RECORDS SUMMARY | 2025-08-21 09:07 | XMS_ITS | Patient Health Record ---
Author Organization [facility] Address [address] [place] [address] Care Team Providers Care Aircraft Engine Specialist Name Role Phone BRAD BUSH Primary Care Provider Paulino Arciniega [phone] Allergies Allergen (clinical drug ingredient) Drug/Non Drug Allergy documented on EMR Reaction Allergy Type Onset Date Status amoxicillin Amoxicillin Unknown Drug Allergy Act niraj Results Component Value Reference Range Notes Pathology (Not yet reviewed by provider) Interpretation: Performing Lab:[facility], [address] [place] [id number] Notes/Report: Reason For Referral No Information Medications Medication SIG (Take, Route, Frequency, Duration) Notes Start Date End Date Status Atenolol 25 MG Tablet Oral; Duration: 90 Days Active Losartan Potassium 50 MG Tablet TAKE 1 TABLET BY MOUTH EVERY DAY Oral; Duration: 90 Days Active Multivitamin Active Calcium Active Atorvastatin Calcium 10 MG Tablet TAKE 1 TABLET BY MOUTH EVERY DAY Oral; Duration: 90 Days Active Immunizations Vaccine Route Administration Date Status Comme nts Influenza Unknown 05/20/2024 Administered Social History Tobacco Use: Social History Observation Description Date Details (start date - stop date) Never Smoker NA - NA Social History Drugs/Alcohol: Social Info Question Answer Notes Alcohol Screen Did you have a drink containing alcohol in the past year? Yes How often did you have a drink containing alcohol in the past year? Monthly or less (1 point) How many drinks did you have on a typical day when you were drinking in the past year? 1 or 2 drinks (0 point) How often did you have 6 or more drinks on one occasion in the past year? Never (0 point) Points 1 Interpretation Negative Tobacco Use: Social Info Question Answer Notes Tobacco Use/Smoking Patient is a nonsmoker Additional Details Category Social Info Options Details Miscellaneous: Marital status: Occupation: retired Section Notes: Nonsmoker; no sig alcohol Nonsmoker; no sig alcohol Problems Problem Type SNOMED Code ICD Code Onset Dates Problem Status W/U Status Risk Notes Problem Screening for malignant neoplasm of colon (485056851) Encounter for screening for malignant neoplasm of colon (Z12.11) Active confirmed Problem History of polyp of colon (situation) (124472409) Personal history of colonic polyps (Z86.010) Active confirmed Problem Preprocedural examination (979671208047502) Preprocedural examination (Z01.818) Active confirmed Vital Signs Temperature 99.1 degrees Fahrenheit 12/31/2024 Blood pressure diastolic 01 mm Hg 12/31/2024 Height 66 in 12/31/2024 Blood pressure systolic 001 mm Hg 12/31/2024 Weight 165 lbs 12/31/2024 BMI 26.63 kg/m2 12/31/2024 Procedures Procedure Date Ordered Date Performed Result Body Sit e COLONOSCOPY 12/31/2024 N/A Encounters Encounter Location Date Provider Diagnosis [facility] Outpatient [address] [place] [id number] 03/30/2025 Paulino Uriostegui Colon cancer screeni ng Z12.11 ; Personal history of adenomatous and serrated colon polyps Z86.0101 ; Colon polyps K63.5 and Diverticulosis of large intestine without perforation or abscess without bleeding K57.30 [facility] [address] [place] [phone] 12/31/2024 Paulino Uriostegui Encounter for screen ing for malignant neoplasm of colon Z12.11 ; Preprocedural examination Z01.818 and Personal history of colonic polyps Z86.010 [facility] [address] [place] [phone] 03/26/2025 Paulino Uriostegui [facility] [address] [place] [phone] 03/30/2025 Paulino Uriostegui Assessments Encounter Date Diagnosis (ICD [...] OF [place] [address] [place] [address] [id number] [employer] Self - patient is the insured [employer] CLAIMS [address] [place] [phone] [id number] [employer]OR [employer] Self - patient is the insured Medical (General) History Medical History History ICD Code Denies CO,DM,CVA,Lung disease,renal dise ase Hypertension Hypercholesterolemia Neg screening colonoscopy in 2006 Colonoscopy in 08/2017 with a small tubu lar adenoma removed Surgical History Surgery Date(Month/Year) Endometriosis with laparotomies 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 Cataracts
== END 2025-08-21 09:25 | disposition home or self-care (01) ==
LOC: HO.HCS 08:56
PROVIDERS: PCP Internal Medicine; Visit Provider Nurse Practitioner Family
DX: I25.10 Atherosclerotic heart disease of native coronary artery without angina pectoris (principal); I10 Essential (primary) hypertension; E78.5 Hyperlipidemia, unspecified
CPT/HCPCS: 99214; G2211

== ENCOUNTER → 2025-08-21 08:55 | Outpatient (BNVA) | payer MEDICARE, SELFPAY | PROVIDERS: PCP Internal Medicine; Visit Provider Nurse Practitioner Family | DX: I10 Essential (primary) hypertension (principal); I25.10 Atherosclerotic heart disease of native coronary artery without angina pectoris; I25.83 Coronary atherosclerosis due to lipid rich plaque; E78.5 Hyperlipidemia, unspecified; Z79.82 Long term (current) use of aspirin | CPT/HCPCS: 99212 ==

== ENCOUNTER 2025-08-31 09:17 | Outpatient (REF) | payer MEDICARE, SELFPAY ==
[2025-08-31 10:36] LABS: MANUAL DIFF FLAG NO
[2025-08-31 11:22] LABS: Hematocrit 41.3 % (37.0-47.0); Hemoglobin 14.1 g/dl (12.0-16.0); Imm Gran Abs Auto 0.01 X10*3/uL (0.00-0.03); Imm Gran Pct Auto 0.2 % (0.0-0.4); Lymphocytes Absolute Auto 1.7 X10*3/uL (1.2-4.9); Mean Corpuscular HGB Conc 34.1 g/dl (31.0-35.0); Mean Corpuscular Hemoglobin 31.3 pg (27.0-33.0); Mean Corpuscular Volume 91.8 fL (80.0-98.0); NRBC Abs Auto 0.000 X10*3/uL (0.0-0.012); NRBC Pct Auto 0.0 /100WBC (0.0-0.2); Platelet Count 217 X10*3/uL (160-400); Red Blood Count 4.50 X10*6/uL (4.20-5.50); White Blood Count 4.1 X10*3/uL (4.8-10.8)
[2025-08-31 12:07] LABS: Anion Gap 12 (12-20)
[2025-08-31 12:12] LABS: Alanine Aminotransferase 27 U/L (0-31); Albumin Level 4.6 g/dL (3.5-5.0); Alkaline Phosphatase 63 U/L (39-117); Aspartate Amino Transferase 26 U/L (5-31); Blood Urea Nitrogen 16 mg/dL (9-16); Calcium 9.6 mg/dL (8.4-10.2); Carbon Dioxide 26 mmol/L (22-29); Chloride 108 mmol/L (96-108); Cholesterol 184 mg/dL (<200); Estimated Glomerular Filt Rate > 60; HDL Cholesterol 55 mg/dL (>40); Potassium 3.9 mmol/L (3.3-5.1); Sodium 142 mmol/L (135-145); Total Protein 7.1 g/dL (6.5-8.0); Triglycerides 140 mg/dL (<150)
== END 2025-08-31 09:18 | disposition home or self-care (01) ==
LOC: HO.HMGCLDS 09:17
PROVIDERS: PCP Physician Assistant; Visit Provider Physician Assistant
DX: I10 Essential (primary) hypertension (principal); E78.5 Hyperlipidemia, unspecified; I25.10 Atherosclerotic heart disease of native coronary artery without angina pectoris; M85.80 Other specified disorders of bone density and structure, unspecified site
CPT/HCPCS: 36415; 80048; 80061; 80076; 82306; 85025

== ENCOUNTER 2025-09-07 08:40 | Outpatient (AMB) | payer MEDICARE, SELFPAY ==
--- NOTE | 2025-09-07 08:54 | A.OFFVIS_ITS ---
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 No complaints. Last Pap/HPV was negative in 07/23 Last Mammogram was BI-RADS 2 in 07/25 Last Colonoscopy was done in 04/24, the recommendation was to repeat in 5 years Last DEXA scan was in 10/25 [facility] Medical History Primary hypertension Atherosclerotic cardiovascular disease Dysplasia of cervix, low grade (GILLIAN 1) Colonoscopy planned Cataract History of high cholesterol Accelerated essential hypertension Surgical History Hx of section Tubal ligation status Family History (Updated 09/07/25 @ 09:00 by Marta Humphreys CMA) Father HTN (hypertension) Aneurysm CAD (coronary artery disease) Mother HTN (hypertension) Pneumonia Social History (Updated 09/07/25 @ 09:00 by Marta Humphreys CMA) Household Members: Significant Other Housing: House Are you a primary care transport nurse to a significant other at home: No Do you presently have visiting nurse or other home services: No Alcohol intake: current Alcohol intake frequency: holidays/special occasions only Patient Tobacco Use Status: Never used Tobacco service: No Current occupational status: retired Sexually active: Yes Sexual orientation: Straight/Heterosexual Gender identity: Female Female Reproductive History Menstrual Age of Menarche: 13 Total pregnancies: 2 Full term: 2 Number of Living Children: 2 Date of last pap smear: 07/10/23 Date of Mammogram: 07/30/25 Date of last Bone Density Screenin10/15/24 Review of Systems Const All systems reviewed & are unremarkable except as noted in HPI and below Card Reports as per HPI Resp Reports as per HPI GI Reports as per HPI and Reports no additional complaints Reports as per HPI Physical Exam Vital Signs: BMI result Body Mass Index 26.5 Const General: cooperative, healthy appearing and comfortable Chest Chest palpation & inspection: normal inspection of the chest and normal palpation of entire chest wall Breast/axilla inspection: normal inspection of the breasts and normal inspection of the axillae Breast/axilla palpation: normal palpation of the breasts, normal palpation of the axillae and no axillary lymphadenopathy Resp Effort & Inspection: normal respiratory effort Auscultation: clear to auscultation bilaterally Percussion: percussion normal Cardio Palpation: normal PMI Rate: regular rate Rhythm: regular rhythm Heart sounds: no murmurs and no rubs Peripheral pulses: Peripheral pulses 2+ throughout GI Inspection: Yes normal to inspection Palpation (GI): Soft to palpation, nontender, no guarding, not rigid and No hepatosplenomegaly present Percussion: Yes normal to percussion Auscultation: normal bowel sounds Rectal Exam - Female: deferred General: Yes bladder normal to palpation External Female Exam: No lesion Speculum Exam - Vagina: normal appearance of the vagina, normal palpation, normal vaginal discharge and not erythematous Speculum Exam - Cervix: normal appearance of the cervix and normal palpation Bimanual exam- vagina & uterus: normal bimanual exam, normal palpation, uterine size normal, bladder normal to palpation, consistency normal and normal palpation Bimanual Exam- Adnexa, other: normal adnexae, no masses and no tenderness Assessment & Plan Assessment & Plan (1) Well woman exam: Comment: GILLIAN 1 in 2018, ASCUS HPV positive in 2019, negative co testing in 2019 , 2021 in 2022 Code(s): Z01.419 - Encounter for gynecological examination (general) (routine) without abnormal findings Category: Medical Plan: Co testing not indicated this year. Counseled the patient about the recommended dietary allowance of 1200 mg of Calcium & 800 IU of vitamin D. Instructions given the patient to schedule next screening Mammogram in 07/26. The patient was instructed to perform monthly self-breast exams and to schedule an annual exam in a year; All questions answered and the patient verbalized understanding. Coding Level of Care Code Est Pt Prev Care >65y(62915) Diagnoses Well woman exam Z01.419
[2025-09-07 08:57] VITALS: BP 136/80; BMI 26.5
== END 2025-09-07 09:17 | disposition home or self-care (01) ==
LOC: HO.HWS 08:40
PROVIDERS: PCP Physician Assistant; Visit Provider Obstetrics & Gynecology
DX: Z01.419 Encounter for gynecological examination (general) (routine) without abnormal findings (principal)
CPT/HCPCS: G0101

== ENCOUNTER 2025-09-07 08:40 | Outpatient (REF) | payer MEDICARE, SELFPAY ==
[2025-09-07 14:04] LABS: Free T4 (Free Thyroxine) 1.06 ng/dL (0.71-1.85); Thyroid Stimulating Hormone 0.70 uIU/mL (0.32-4.0)
== END 2025-09-07 08:41 | disposition home or self-care (01) ==
LOC: HO.LAB 08:40
PROVIDERS: Absent Provider Physician Assistant; PCP Physician Assistant; Visit Provider Obstetrics & Gynecology
DX: Z00.00 Encounter for general adult medical examination without abnormal findings (principal); Z01.419 Encounter for gynecological examination (general) (routine) without abnormal findings; I10 Essential (primary) hypertension; M85.80 Other specified disorders of bone density and structure, unspecified site; E78.5 Hyperlipidemia, unspecified; E04.9 Nontoxic goiter, unspecified; R05.8 Other specified cough
CPT/HCPCS: 36415; 84439; 84443; 84481; 86376; 99212; G0101

== ENCOUNTER 2025-09-07 11:12 | Outpatient (AMB) | payer MEDICARE, SELFPAY ==
--- NOTE | 2025-09-07 11:17 | MHC.PC.OV ---
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 Accompanied by: Self / Same As Patient Allergies adhesive (ADHESIVE) Allergy (Intermediate, Verified 08/21/25 09:06) RASH amoxicillin Allergy (Intermediate, Verified 08/21/25 09:06) rash Penicillins (PENICILLINS) Allergy (Intermediate, Verified 08/21/25 09:06) RASH Medication List - Last Reconciled 09/07/25 by HUA Castro albuterol sulfate 90 mcg/actuation (Ventolin HFA) 2 puffs inhalation Q4-6H PRN apple cider vinegar mg PO aspirin 81 mg PO DAILY atenolol 25 mg PO DAILY atorvastatin (Lipitor) 80 mg PO DAILY benzonatate 100 mg PO TID PRN calcium carbonate (Calcium 500) 1,250 mg PO DAILY loratadine (Allergy Relief (loratadine)) 10 mg PO DAILY PRN losartan 50 mg PO DAILY multivitamin 1 tab PO DAILY Tobacco use date assessed: 09/07/25 Fall risk assessment: No Falls in past year Last assessed Fall Risk: 09/07/25 Dental Screening Dental Screen Date: 09/07/25 Did you have a dental visit in the last 12 months?: Yes Did you have a dental problem in the last 6 months where you did not have access to dental care?: No Was dental information given to patient?: Patient has dentist HPI HPI Comments History of Present Illness Details 70-year-old female with history of hyperlipidemia, hypertension, atherosclerosis, cataracts presenting to the office today for management of chronic conditions and for annual physical exam. She currently lives at home with her significant other and feels safe there. 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 Occasional alcohol- holidays. No history of cigarettes. No drugs including marijuana. Has not been exercising but has been given the okay by Cardiology to resume water aerobics. Not performing any weight-bearing exercise. She does follow a healthy diet limiting sugars and carbohydrates and eating plenty of fruits, vegetables, proteins. Hypertension-blood pressure initially 196/90, on recheck 186/96. Has been uncontrolled for several months. She has been compliant with losartan 50 mg daily and atenolol 25 mg daily. She does check her blood pressures at home which are also elevated with SBP in the 160s and DBP in the 80s. No headaches, chest pain, shortness of breath, dizziness. Last echocardiogram showed normal LV systolic function with EF 55-60%. Renal function is normal. Hyperlipidemia/atherosclerotic cardiovascular disease-following with [facility]. Nuclear scan demonstrated normal myocardial perfusion with ejection fracture greater than 70% during stress and rest. She is on aspirin, atorvastatin 40 mg, atenolol. 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 Likely getting over URI currently, but cough ongoing longer than this. Still with PND, using claritin with some improvement. No SOB/persistent wheezing. Using albuterol if needed. Occ heartburn. Taking pepcid occ ?if this helps the cough. Worse at nighttime, but does not wake up cough. No n/v/abd pain. Health maintenance: Last Pap/HPV was negative in 07/23 Last Mammogram was BI-RADS 2 in 07/25 Last Colonoscopy was done in 04/24, the recommendation was to repeat in 5 years Last DEXA scan was in 10/25-osteopenia Follows with dentist/. Dentist every 3 months Eye- annually, november. Dr. Luna Up-to-date with vaccination except due for Tdap Follows with [facility] for skin checks Reviewed past medical, surgical, social, family history ROS: General: No fevers, malaise, unintentional weight loss HEENT: No blurred vision, diplopia. No sore throat, nasal congestion, rhinorrhea, sinus pain, ear pain. No hearing loss Neck - no adenopathy. Symmetric goiter, no palpable nodules Cardiovascular: No chest pain, palpitations, or leg edema Respiratory: No shortness of breath. sse hpi Breast: No pain, palpable lumps, nipple inversion GI: No dysphagia, odynophagia, globus sensation. No abdominal pain, nausea, vomiting, diarrhea, constipation, melena, hematochezia : No dysuria, hematuria, increased urinary frequency, decreased urinary output. 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 No AH/VH. No SI/HI Skin: No rashes. see hpi EXAM: Constitutional - Awake and Alert, No apparent distress Eyes - PERRLA, EOMI. Anicteric Ears - external ears normal, canals clear, TMs intact and pearly pretty with good cone of light Nose- septum midline, nares clear, no sinus tenderness Mouth/throat- mucosa moist, tongue and uvula midline, no erythema/edema or tonsillar adenopathy. Neck-trachea midline, thyroid symmetric without palpable nodules, no adenopathy Cardiovascular - S1S2, RRR, No edema Respiratory - Normal lung expansion, Normal respiratory effort, No respiratory distress, CTA bilaterally Gastrointestinal - NT / ND; +BS; No rebound or guarding - No CVA tenderness Extremities - no calf tenderness bilaterally, no swelling Musculoskeletal - Normal inspection, normal ROM Skin - Warm/Dry, no concerning lesions Neurological - Alert & oriented x3, CN II-XII in tact, 5/5 strength BUE and BLE, 2+ patellar reflexes, sensation intact Psychological - Appropriate affect [facility] Medical History (Updated 09/07/25 @ 11:56 by HUA Castro) Squamous cell carcinoma, face Endometriosis Primary hypertension Atherosclerotic cardiovascular disease Dysplasia of cervix, low grade (GILLIAN 1) Colonoscopy planned Cataract History of high cholesterol Accelerated essential hypertension Surgical History S/P cataract extraction and insertion of intraocular lens Hx of section Tubal ligation status Family History Father HTN (hypertension) Aneurysm CAD (coronary artery disease) Mother HTN (hypertension) Pneumonia Social History Household Members: Significant Other Housing: House Are you a primary plant care worker to a significant other at home: No Do you presently have visiting nurse or other home services: No Alcohol intake: current Alcohol intake frequency: holidays/special occasions only Patient Tobacco Use Status: Never used Tobacco e-Cigarette/Vaping Use: Never Used service: No Current occupational status: retired Sexual orientation: Straight/Heterosexual Gender identity: Female Cognitive needs: No Hearing needs: No Vision needs: No Female Reproductive History Menstrual Age of Menarche: 13 Questionnaire AUDIT C Alcohol Use Questionnaire (AUDIT-C) 2. How many drinks containing alcohol do you have on a typical day when you are drinking?: 1 or 2 3. How often do you have six or more drinks on one occasion?: Never Total Score: 0 Physical exam (Primary Care) Vital Signs: Last Vital Signs Temp 98.1 F 09/07/25 11:19 Pulse 75 09/07/25 11:19 Resp 14 09/07/25 11:19 BP 196/90 H 09/07/25 11:19 Pulse Ox 97 09/07/25 11:19 Oxygen Delivery Method Room Air 09/07/25 11:19 BMI result Body Mass Index 27.2 Tobacco/Smoking Status: Tobacco use Status Tobacco use date assessed 09/07/25 09/07/25 11:18 Patient Tobacco Use Status Never used Tobacco 09/07/25 11:18 e-Cigarette/Vaping Use Never Used 09/07/25 11:25 Coding Level of Care Code Est Pt Level 4 (61189) Est Pt Prev Care >65y(24286) Diagnoses Routine medical exam Z00.00 Primary hypertension I10 Hyperlipidemia, unspecified E78.5 Osteopenia M85.80 Dry cough R05.8 Goiter E04.9 Assessment & Plan Assessment & Plan (1) Routine medical exam: Code(s): Z00.00 - Encounter for general adult medical examination without abnormal findings Category: Medical Plan: 70-year-old female presenting for annual exam. Plan as below (2) Primary hypertension: Code(s): I10 - Essential (primary) hypertension Category: Medical Plan: Uncontrolled. Increase losartan to 100 mg daily. Continue checking blood pressures at home. If these remain elevated above 140/90, increase atenolol to 50 mg daily. Advised to message the office if this is the case. Follow up in 2 weeks for blood pressure check. Renal function electrolyte levels are normal (3) Hyperlipidemia, unspecified: Code(s): E78.5 - Hyperlipidemia, unspecified Category: Medical Plan: LDL not at goal at 01:01, goal less than 70. Increase atorvastatin to 80 mg daily. Continue diet lower in saturated fats and highly processed foods. Advised to resume exercise as recommended by Cardiology (4) Osteopenia: Code(s): M85.80 - Other specified disorders of bone density and structure, unspecified site Category: Medical Plan: Recommend weight-bearing exercise as well as calcium and vitamin-D supplementation (5) Dry cough: Code(s): R05.8 - Other specified cough Category: Medical Plan: Question if this is GI related. Advised to trial omeprazole 20 mg daily to see if symptoms resolve. It is unclear if there was response to Pepcid. Avoid triggering foods. Continue oral antihistamine. We will also check ultrasound of the thyroid given goiter which could also be contributing to chronic cough. She is referred to pulmonology evaluation and management. (6) Goiter: Code(s): E04.9 - Nontoxic goiter, unspecified Category: Medical Plan: TSH, free T4, free T3, TPO ordered. Ultrasound of the thyroid ordered Plan Follow-up in 2 weeks for blood pressure check.. Routine screening labs as ordered below Continue with screening mammograms, Pap smears, colonoscopies Continue following for annual skin exams and use sun protection Dental exams q3m Annual eye exams Wear seat belt in car Recommend regular exercise and healthy diet Orders: Orders US thyroid Today E04.9 - Nontoxic goiter, unspecified Free T4 (Free Thyroxine) Today E04.9 - Nontoxic goiter, unspecified Triiodothyronine T3 Free Today E04.9 - Nontoxic goiter, unspecified Thyroid Peroxidase Antibodies Today E04.9 - Nontoxic goiter, unspecified Thyroid Stimulating Hormone Today E04.9 - Nontoxic goiter, unspecified Referrals Pulmonology Referral R05.3 - Chronic cough Medications: New atorvastatin (Lipitor) 80 mg PO DAILY 90 tabs 1RF losartan 100 mg PO DAILY 90 tabs 1RF Discontinued atorvastatin (Lipitor) Discontinued Reason: Doctor's Order 40 mg PO QPM 90 tabs 1RF losartan Discontinued Reason: Doctor's Order 50 mg PO DAILY 60 tabs 0RF Patient Instructions: Increase losartan to 100 mg daily. Check blood pressures. If they remain elevated above 140/90, please increase atenolol to 50 mg daily. Please send me a portal message if this is the case. Trial omeprazole every morning at least 1 hour before eating or drinking anything except for water see if this helps with chronic cough
[2025-09-07 11:19] VITALS: BP 196/90; PULSE 75; RESP 14; TEMP 36.7; O2SAT 97; BMI 27.2
[2025-09-07 11:50] VITALS: BP 186/96
== END 2025-09-07 12:01 | disposition home or self-care (01) ==
LOC: HO.HMCHD 11:13
PROVIDERS: PCP Physician Assistant; Visit Provider Physician Assistant
DX: I10 Essential (primary) hypertension (principal); E78.5 Hyperlipidemia, unspecified; M85.80 Other specified disorders of bone density and structure, unspecified site; R05.8 Other specified cough; E04.9 Nontoxic goiter, unspecified

== ENCOUNTER 2025-09-22 08:59 | Outpatient (AMB) | payer MEDICARE, SELFPAY ==
--- OUTSIDE RECORDS SUMMARY | 2025-03-30 06:40 | XMS_ITS ---
Author Organization [facility] Address [address] [place] [address] Care Team Providers Care Inside Sales Territory Manager Name Role Phone RACHELLE, KARTIK Primary Care Provider Paulino Arciniega [phone] REASON FOR VISIT screening,hx polyps Encounters Encounter Location Date Provider Diagnosis [facility] [place] [address] [place] [phone] 03/30/2025 Paulino Uriostegui Colon cancer scree brenda [...] * NESTOR VILLANUEVA ADOB:[birth year] (70 yo F)Acc No.[id number]:03/30/2025 COLON WITH MAC Patient: Efrain CABALLERONESTOR QUIÑONES Provider: Loretta Uriostegui MD :1955 A ge:69 Y S ex:Female Date:03/30/2025 Address:[address] [place], [place] [phone] Pcp:BRAD BUSH Subjective: * Chief Complaints: * [...] Modifiers: PT 0529F INTRVL 3+YRS PTS CLNSCP [id number] RCMND FLW-UP 10 YRS DOCD, Modifiers: 1P Billing Information: * Procedure Codes: 37866 COLONOSCOPY AND BIOPSY. Modifiers: PT 0529F INTRVL [...] 0 03/30/2025 Generated for Ángel avila/Marty/Kathrineitting on: 11/23/2024 09:28 AM EST
--- NOTE | 2025-09-22 09:13 | A.OFFPC_ITS ---
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 Accompanied by: Self / Same As Patient Allergies adhesive (ADHESIVE) Allergy (Intermediate, Verified 09/22/25 09:14) RASH amoxicillin Allergy (Intermediate, Verified 09/22/25 09:14) rash Penicillins (PENICILLINS) Allergy (Intermediate, Verified 09/22/25 09:14) RASH Medication List - Last Reconciled 09/22/25 by HUA Castro albuterol sulfate 90 mcg/actuation (Ventolin HFA) 2 puffs inhalation Q4-6H PRN amlodipine 10 mg PO DAILY apple cider vinegar mg PO aspirin 81 mg PO DAILY atorvastatin (Lipitor) 80 mg PO DAILY calcium carbonate (Calcium 500) 1,250 mg PO DAILY carvedilol 3.125 mg PO BID loratadine (Allergy Relief (loratadine)) 10 mg PO DAILY PRN losartan 100 mg PO DAILY multivitamin 1 tab PO DAILY Tobacco use date assessed: 09/07/25 Dental Screening Dental Screen Date: 09/07/25 HPI HPI Comments History of Present Illness Details 70-year-old female with history of hyper lipidemia, hypertension, atherosclerosis, cataracts presenting to the office today for management of chronic conditions and BP follow up. Hypertension-blood pressures have been persistently elevated for several months. At last visit, losartan was increased to 100 mg daily and carvedilol was increa sed to 6.25 mg twice daily. Atenolol was discontinued. Despite this, blood pressure in the office initially 230/116, on recheck 240/110 manually and 193/84 with machine. She does endorse an intermittent headache at the top of her head described as a pressure without radiation. Resolves with ibuprofen and Tylenol. No visual changes, lightheadedness, chest pain. Some dyspnea on stairs. No weakness, paresthesias, slurred speech. Reviewed last echocardiogram showing normal LV systolic function with EF 55-60%. No significant valvular abnormality. Renal function is within normal limits. Blood pressures at home: This morning-198/109 Have been SBP has been averaging 170s-190s best was 170/70 Initial BP in office: 230/116 On manual recheck 240/110 Machine recheck 193/84 Hyperlipidemia/atherosclerotic cardiovascular disease-following with [facility]. Nuclear scan demonstrated normal myocardial perfusion with ejection fracture greater than 70% during stress and rest. She is on aspirin, atorvastatin 40 mg, atenolol. 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-following with [facility] Concerns: Dry cough-not improving with omeprazole ROS: see hpi EXAM: Constitutional - Awake and Alert, No apparent distress Eyes - PERRL Cardiovascular - S1S2, RRR, No edema Respiratory - Normal lung expansion, Normal respiratory effort, No respiratory distress, CTA bilaterally Extremities - no calf tenderness bilaterally, no swelling Skin - Warm/Dry Neurological - Alert & oriented x3 Psychological - Appropriate affect [facility] Medical History (Updated 09/22/25 @ 09:36 by HUA Castro) Uncontrolled hypertension Squamous cell carcinoma, face Endometriosis Primary hypertension Atherosclerotic cardiovascular disease Dysplasia of cervix, low grade (GILLIAN 1) Colonoscopy planned Cataract History of high cholesterol Accelerated essential hypertension Surgical History S/P cataract extraction and insertion of intraocular lens Hx of section Tubal ligation status Family History Father HTN (hypertension) Aneurysm CAD (coronary artery disease) Mother HTN (hypertension) Pneumonia Social History Household Members: Significant Other Housing: House Are you a primary care clinician to a significant other at home: No Do you presently have visiting nurse or other home services: No Alcohol intake: current Alcohol intake frequency: holidays/special occasions only Patient Tobacco Use Status: Never used Tobacco e-Cigarette/Vaping Use: Never Used service: No Current occupational status: retired Sexual orientation: Straight/Heterosexual Gender identity: Female Cognitive needs: No Hearing needs: No Vision needs: No Female Reproductive History Menstrual Age of Menarche: 13 Physical exam (Primary Care) Vital Signs: Last Vital Signs Temp 98.3 F 09/22/25 09:16 Pulse 93 09/22/25 09:16 BP 193/84 H 12/23/25 09:44 Pulse Ox 98 09/22/25 09:16 Oxygen Delivery Method Room Air 09/22/25 09:16 BMI result Body Mass Index 25.8 Tobacco/Smoking Status: Tobacco use Status Tobacco use date assessed 09/07/25 09/22/25 09:19 Patient Tobacco Use Status Never used Tobacco 09/22/25 09:19 e-Cigarette/Vaping Use Never Used 09/22/25 09:19 Coding Level of Care Code Est Pt Level 4 (17279) Add On Problem Visit Only Diagnoses Uncontrolled hypertension I10 Hyperlipidemia, unspecified E78.5 Dry cough R05.8 Assessment & Plan Assessment & Plan (1) Uncontrolled hypertension: Code(s): I10 - Essential (primary) hypertension Category: Medical Plan: Blood pressure is significantly uncontrolled but 193/84. Currently asymptomatic but has had mild headaches which do respond well to Tylenol and ibuprofen. Will add amlodipine 10 mg daily and she should continue increase dose of losartan 100 mg daily as well as carvedilol 6.25 mg daily. Should she develop any worsening headache, chest pain, lightheadedness, dyspnea, weakness, numbness/tingling, slurred speech present to the ED. Echocardiogram reviewed, no significant abnormality to account for patient's uncontrolled blood pressure. Will also check for any renal artery stenosis (2) Hyperlipidemia, unspecified: Code(s): E78.5 - Hyperlipidemia, unspecified Category: Medical Plan: Lipids reasonably controlled though goal is less than 70 given her history. Atorvastatin was increased to 80 mg twice daily. Continue diet lower in saturated fats and highly processed foods. Advised to resume exercise as recommended by Cardiology (3) Dry cough: Code(s): R05.8 - Other specified cough Category: Medical Plan: No improvement with PPI. Advised to discontinue PPI. Referred to pulmonology who recommends PFT prior to appointment. Plan Follow-up in tomorrow for blood pressure Orders: Orders PFT pulmonary function test Today R05.3 - Chronic cough US renal doppler Today I10 - Essential (primary) hypertension Medications: New carvedilol must administer with a meal/food 6.25 mg PO BID 180 tabs 1RF amlodipine 10 mg PO DAILY 90 tabs 1RF Discontinued carvedilol must administer with a meal/food Discontinued Reason: Doctor's Order 3.125 mg PO BID 180 tabs 1RF
[2025-09-22 09:16] VITALS: BP 230/116; PULSE 93; TEMP 36.8; O2SAT 98; BMI 25.8
--- OUTSIDE RECORDS SUMMARY | 2025-09-22 09:28 | XMS_ITS | Patient Health Record ---
Author Organization [facility] Address [address] [place] [address] Care Team Providers Care Reports Analysis Manager Name Role Phone BRAD BUSH Primary Care Provider Paulino Arciniega [phone] Allergies Allergen (clinical drug ingredient) Drug/Non Drug Allergy documented on EMR Reaction Allergy Type Onset Date Status amoxicillin Amoxicillin Unknown Drug Allergy Act niraj Results Component Value Reference Range Notes Pathology (Not yet reviewed by provider) Interpretation: Performing Lab:[facility], [address] [place] [id number] Notes/Report: Reason For Referral No Information Medications [...] Problem Screening for malignant neoplasm of colon (472175543) Encounter for screening for malignant neoplasm of colon (Z12.11) Active confirmed Problem History of polyp of colon (situation) (713137929) Personal history of colonic polyps (Z86.010) Active confirmed Problem Preprocedural examination ([id number]) Preprocedural examination (Z01.818) Active confirmed Vital Signs Temperature 99.1 degrees Fahrenheit 12/31/2024 Blood pressure diastolic 01 mm Hg 12/31/2024 Height 66 in 12/31/2024 Blood pressure systolic 001 mm Hg 12/31/2024 Weight 165 lbs 12/31/2024 BMI 26.63 kg/m2 12/31/2024 Procedures Procedure Date Ordered Date Performed Result Body Sit e COLONOSCOPY 12/31/2024 N/A Encounters Encounter Location Date Provider Diagnosis [facility] Outpatient [address] [place] [id number] 03/30/2025 Paulino Uriostegui Colon cancer screeni ng Z12.11 ; Personal history of adenomatous and serrated colon polyps Z86.0101 ; Colon polyps K63.5 and Diverticulosis of large intestine without perforation or abscess without bleeding K57.30 [facility] [address] [place] [phone] 12/31/2024 Paulino Uriostegui Encounter for screen ing for malignant neoplasm of colon Z12.11 ; Preprocedural examination Z01.818 and Personal history of colonic polyps Z86.010 [facility] [address] [place] [phone] 03/26/2025 Paulino Uriostegui [facility] [address] [place] [phone] 03/30/2025 Paulino Uriostegui Assessments Encounter Date Diagnosis [...] OF [place] [address] [place] [address] [id number] [employer] Self - patient is the insured [employer] CLAIMS [address] [place] [address] [id number] [employer] Self - patient is the insured Medical (General) History Medical History History ICD Code Denies FL,DM,CVA,Lung disease,renal dise ase Hypertension Hypercholesterolemia Neg screening colonoscopy in 2006 Colonoscopy in 08/2017 with a small tubu lar adenoma removed Surgical History Surgery Date(Month/Year) Endometriosis with laparotomies 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 Cataracts
[2025-09-22 09:39] VITALS: BP 240/110
[2025-09-22 09:44] VITALS: BP 193/84
== END 2025-09-22 09:50 | disposition home or self-care (01) ==
LOC: HO.HMCHD 08:59
PROVIDERS: PCP Physician Assistant; Visit Provider Physician Assistant
DX: I10 Essential (primary) hypertension (principal); E78.5 Hyperlipidemia, unspecified; R05.8 Other specified cough

== ENCOUNTER → 2025-09-22 08:59 | Outpatient (BNVA) | payer MEDICARE, SELFPAY | PROVIDERS: PCP Physician Assistant; Visit Provider Physician Assistant | DX: I10 Essential (primary) hypertension (principal); E78.5 Hyperlipidemia, unspecified; R05.8 Other specified cough | CPT/HCPCS: 99212 ==

== ENCOUNTER 2025-09-23 08:12 | Outpatient (AMB) | payer MEDICARE, SELFPAY ==
--- OUTSIDE RECORDS SUMMARY | 2025-03-30 06:40 | XMS_ITS ---
Author Organization [facility] Address [address] [place] [address] Care Team Providers Care Seam Checker Name Role Phone RACHELLE, KARTIK Primary Care Provider Paulino Arciniega [phone] REASON FOR VISIT screening,hx polyps Encounters Encounter Location Date Provider Diagnosis [facility] Outpatient [address] [place] [phone] 03/30/2025 Paulino Uriostegui Colon cancer scree brenda [...] * NESTOR VILLANUEVA ADOB:[birth year] (70 yo F)Acc No.[id number]:03/30/2025 COLON WITH MAC Patient: Efrain CABALLERONESTOR QUIÑONES Provider: Loretta Uriostegui MD :1955 A ge:69 Y S ex:Female Date:03/30/2025 Address:[address] [place], [place] [phone] Pcp:BRAD BUSH Subjective: * Chief Complaints: * [...] Modifiers: PT 0529F INTRVL 3+YRS PTS CLNSCP [id number] RCMND FLW-UP 10 YRS DOCD, Modifiers: 1P Billing Information: * Procedure Codes: 95311 COLONOSCOPY AND BIOPSY. Modifiers: PT 0529F INTRVL [...] 0 03/30/2025 Generated for Ángel avila/Marty/Kathrineitting on: 11/24/2024 08:15 AM EST
--- NOTE | 2025-09-23 08:15 | MHC.PC.OV ---
Vital Signs 09/23/25 08:17 Height 5 ft 8 in Weight 77.111 kg BMI 25.8 BP 172/82 H Pulse 77 Pulse Source Pulse Oximeter Temp 97.7 F Temp Source Temporal Artery Scan Pulse Oximetry (%) 97 Oxygen Delivery Method Room Air Intake Visit Reasons: BP check at 8:30 with Vero [employer] Suit Maker Required: No Accompanied by: Self / Same As Patient Allergies adhesive (ADHESIVE) Allergy (Intermediate, Verified 09/23/25 08:15) RASH amoxicillin Allergy (Intermediate, Verified 09/23/25 08:15) rash Penicillins (PENICILLINS) Allergy (Intermediate, Verified 09/23/25 08:15) RASH Medication List - Last Reconciled 09/23/25 by HUA Castro albuterol sulfate 90 mcg/actuation (Ventolin HFA) 2 puffs inhalation Q4-6H PRN amlodipine 10 mg PO DAILY apple cider vinegar mg PO aspirin 81 mg PO DAILY atorvastatin (Lipitor) 80 mg PO DAILY calcium carbonate (Calcium 500) 1,250 mg PO DAILY carvedilol 12.5 mg (2 x 6.25 mg) PO BID loratadine (Allergy Relief (loratadine)) 10 mg PO DAILY PRN losartan 100 mg PO DAILY multivitamin 1 tab PO DAILY Tobacco use date assessed: 09/07/25 Dental Screening Dental Screen Date: 09/07/25 HPI HPI Comments History of Present Illness Details 70-year-old female with history of hyperlipidemia, hypertension, atherosclerosis, cataracts presenting to the office today for management of chronic conditions and BP follow up. She has been on losartan 100 mg daily, amlodipine 10 mg daily. Blood pressures remain uncontrolled so carvedilol was increased to 6.25 mg twice daily. Blood pressures at home have 151/95. She is compliant with her medications. Blood pressure in the office is 156/80 on recheck. Reviewed last echocardiogram which shows normal LV systolic function. Renal function has been normal. Renal artery duplex has been ordered to rule out renal artery stenosis as blood pressures were previously controlled prior to August. Asymptomatic ROS: None EXAM: Constitutional - Awake and Alert, No apparent distress Eyes - PERRL Cardiovascular - S1S2, RRR, No edema Respiratory - Normal lung expansion, Normal respiratory effort, No respiratory distress, CTA bilaterally Extremities - no calf tenderness bilaterally, no swelling Skin - Warm/Dry Neurological - Alert & oriented x3 Psychological - Appropriate affect [facility] Medical History (Updated 09/22/25 @ 09:36 by HUA Castro) Uncontrolled hypertension Squamous cell carcinoma, face Endometriosis Primary hypertension Atherosclerotic cardiovascular disease Dysplasia of cervix, low grade (GILLIAN 1) Colonoscopy planned Cataract History of high cholesterol Accelerated essential hypertension Surgical History S/P cataract extraction and insertion of intraocular lens Hx of section Tubal ligation status Family History Father HTN (hypertension) Aneurysm CAD (coronary artery disease) Mother HTN (hypertension) Pneumonia Social History Household Members: Significant Other Housing: House Are you a primary career services manager to a significant other at home: No Do you presently have visiting nurse or other home services: No Alcohol intake: current Alcohol intake frequency: holidays/special occasions only Patient Tobacco Use Status: Never used Tobacco e-Cigarette/Vaping Use: Never Used service: No Current occupational status: retired Sexual orientation: Straight/Heterosexual Gender identity: Female Cognitive needs: No Hearing needs: No Vision needs: No Female Reproductive History Menstrual Age of Menarche: 13 Physical exam (Primary Care) Vital Signs: Last Vital Signs Temp 97.7 F 09/23/25 08:17 Pulse 77 09/23/25 08:17 BP 172/82 H 09/23/25 08:17 Pulse Ox 97 09/23/25 08:17 Oxygen Delivery Method Room Air 09/23/25 08:17 BMI result Body Mass Index 25.8 Tobacco/Smoking Status: Tobacco use Status Tobacco use date assessed 09/07/25 09/23/25 08:19 Patient Tobacco Use Status Never used Tobacco 09/23/25 08:19 e-Cigarette/Vaping Use Never Used 09/23/25 08:19 Coding Level of Care Code Est Pt Level 4 (41578) Add On Problem Visit Only Diagnoses Uncontrolled hypertension I10 Assessment & Plan Assessment & Plan (1) Uncontrolled hypertension: Code(s): I10 - Essential (primary) hypertension Category: Medical Plan: Uncontrolled. Increase carvedilol to 12.5 mg twice daily. Continue amlodipine 10 mg daily and losartan 100 mg daily. Will proceed with arterial duplex to rule out renal artery stenosis. Echocardiogram was reassuring. Renal function is normal. Follow-up for nurse blood pressure check in 1-2 weeks and follow-up in 6 months with me Plan As above Orders: Orders Lipid Panel Today E78.5 - Hyperlipidemia, unspecified, I10 - Essential (primary) hypertension Liver Panel Today E78.5 - Hyperlipidemia, unspecified, I10 - Essential (primary) hypertension Basic Metabolic Panel Today E78.5 - Hyperlipidemia, unspecified, I10 - Essential (primary) hypertension Medications: Changed From carvedilol must administer with a meal/food 6.25 mg PO BID 180 tabs 1RF To carvedilol must administer with a meal/food 12.5 mg (2 x 6.25 mg) PO BID 180 tabs 1RF
--- OUTSIDE RECORDS SUMMARY | 2025-09-23 08:16 | XMS_ITS | Patient Health Record ---
Author Organization [facility] Address [address] [place] [address] Care Team Providers Care Intensive Care Nurse Name Role Phone BRAD BUSH Primary Care Provider Paulino Arciniega [phone] Allergies Allergen (clinical drug ingredient) Drug/Non Drug Allergy documented on EMR Reaction Allergy Type Onset Date Status amoxicillin Amoxicillin Unknown Drug Allergy Act niraj Results Component Value Reference Range Notes Pathology (Not yet reviewed by provider) Interpretation: Performing Lab:[facility], [address] [place] [id number] Notes/Report: Reason For Referral No Information Medications [...] Problem Screening for malignant neoplasm of colon (375652505) Encounter for screening for malignant neoplasm of colon (Z12.11) Active confirmed Problem History of polyp of colon (situation) (358944200) Personal history of colonic polyps (Z86.010) Active confirmed Problem Preprocedural examination (671722300746224) Preprocedural examination (Z01.818) Active confirmed Vital Signs Temperature 99.1 degrees Fahrenheit 12/31/2024 Blood pressure diastolic 01 mm Hg 12/31/2024 Height 66 in 12/31/2024 Blood pressure systolic 001 mm Hg 12/31/2024 Weight 165 lbs 12/31/2024 BMI 26.63 kg/m2 12/31/2024 Procedures Procedure Date Ordered Date Performed Result Body Sit e COLONOSCOPY 12/31/2024 N/A Encounters Encounter Location Date Provider Diagnosis [facility] Outpatient [address] [place] [phone] 03/30/2025 Paulino Uriostegui Colon cancer screeni ng Z12.11 ; Personal history of adenomatous and serrated colon polyps Z86.0101 ; Colon polyps K63.5 and Diverticulosis of large intestine without perforation or abscess without bleeding K57.30 [facility] [address] [place] [phone] 12/31/2024 Paulino Uriostegui Encounter for screen ing for malignant neoplasm of colon Z12.11 ; Preprocedural examination Z01.818 and Personal history of colonic polyps Z86.010 [facility] [address] [place] [phone] 03/26/2025 Paulino Uriostegui [facility] [address] [place] [phone] 03/30/2025 Paulino Uriostegui Assessments Encounter Date Diagnosis [...] OF [place] [address] [place] [address] [phone] [id number] [employer] Self - patient is the insured [employer] CLAIM[employer] [address] [place] [address] [phone] [id number] [employer] Self - patient is the insured Medical (General) History Medical History History ICD Code Denies RI,DM,CVA,Lung disease,renal dise ase Hypertension Hypercholesterolemia Neg screening colonoscopy in 2006 Colonoscopy in 08/2017 with a small tubu lar adenoma removed Surgical History Surgery Date(Month/Year) Endometriosis with laparotomies 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 Cataracts
[2025-09-23 08:17] VITALS: BP 172/82; PULSE 77; TEMP 36.5; O2SAT 97; BMI 25.8
== END 2025-09-23 08:56 | disposition home or self-care (01) ==
LOC: HO.HMCHD 08:12
PROVIDERS: PCP Physician Assistant; Visit Provider Physician Assistant
DX: I10 Essential (primary) hypertension (principal)

== ENCOUNTER → 2025-09-23 08:12 | Outpatient (BNVA) | payer MEDICARE, SELFPAY | PROVIDERS: PCP Physician Assistant; Visit Provider Physician Assistant | DX: I10 Essential (primary) hypertension (principal); E78.5 Hyperlipidemia, unspecified | CPT/HCPCS: 99212 ==